=== PATIENT | male | born 1970 | race Caucasian/White ===

== ENCOUNTER 2020-06-03 23:08 | Emergency (ER) | payer MEDICAID ==
[2020-06-03 23:22] VITALS: BP 137/79
[2020-06-03] MEDS ORDERED: CLINDAMYCIN 600 MG/D5W RTU 600 MG/50 ML RTUPB IV ONE (23:32)
--- NOTE | 2020-06-03 23:34 | ER Document Report ---
ED Medical Screen (RME) - General Chief Complaint: Insect Bite Stated Complaint: POSS SPIDER BITE Time Seen by Provider: 06/03/20 23:31 Primary Care Provider: AUSTIN BARRERA MD [Primary Care Provider] - Follow up as needed Notes: HPI: 49-year-old male otherwise healthy up-to-date on tetanus vaccination presenting for possible insect bite to the base of the index finger that he thinks occurred in the last 1 to 2 days. Now with swelling over the entire left hand and difficulty bending the left finger. No fever PHYSICAL EXAMINATION: Significant soft tissue swelling over the dorsum of the left hand with erythema and increased warmth extending just past the extensor surface of the wrist. There is an apparent bite site or abscess to the radial side of the proximal phalange of the left index finger with induration extending around the proximal phalange onto the volar pad of the hand with some tenderness on palpation. Patient with some difficulty flexing and extending the finger at the MCP region I have greeted and performed a rapid initial assessment of this patient. A comprehensive ED assessment and evaluation of the patient, analysis of test results and completion of medical decision making process will be conducted by an additional ED providers. TRAVEL OUTSIDE OF THE [place] IN LAST 30 DAYS: No Past Medical History - Immunizations Immunizations up to date: No Physical Exam - Vital signs Vitals: Temp Pulse Resp BP Pulse Ox 98.0 F 67 18 137/79 H 99 06/03/20 23:20 06/03/20 23:20 06/03/20 23:20 06/03/20 23:20 06/03/20 23:20 Course - Vital Signs Vital signs: Temp Pulse Resp BP Pulse Ox 98.0 F 67 18 137/79 H 99 06/03/20 23:20 06/03/20 23:20 06/03/20 23:20 06/03/20 23:20 06/03/20 23:20 Doctor's Discharge - Discharge Referrals: AUSTIN BARRERA MD [Primary Care Provider] - Follow up as needed
[2020-06-04 00:23] LABS: ABSOLUTE BASOPHILS # (AUTO) 0.1 10^3/uL (0.0-0.2); ABSOLUTE EOSINOPHILS # (AUTO) 0.5 10^3/uL (0.0-0.6); ABSOLUTE LYMPHOCYTES (AUTO) 1.8 10^3/uL (0.5-4.7); ABSOLUTE MONOCYTES (AUTO) 0.8 10^3/uL (0.1-1.4); BASOPHILS % (AUTO) 0.9 % (0-2); EOSINOPHILS % (AUTO) 3.8 % (0-6); HEMATOCRIT 32.3 % (37.9-51.0); LYMPHOCYTES % (AUTO) 13.7 % (13-45); MEAN CORPUSCULAR HEMOGLOBIN 32.9 pg (27.0-33.4); MEAN CORPUSCULAR HGB CONC 34.1 g/dL (32.0-36.0); MEAN CORPUSCULAR VOLUME 96 fl (80-97); PLATELET COUNT 291 10^3/uL (150-450); RED BLOOD COUNT 3.36 10^6/uL (4.35-5.55); RED CELL DISTRIBUTION WIDTH 13.1 % (11.5-14.0); SEGMENTED NEUTROPHILS % (AUTO) 75.6 % (42-78); TOTAL CELLS COUNTED % (AUTO) 100 %; WHITE BLOOD COUNT 13.2 10^3/uL (4.0-10.5)
[2020-06-04 00:46] LABS: ALBUMIN 3.5 g/dL (3.5-5.0); ALKALINE PHOSPHATASE 79 U/L (38-126); ANION GAP 7 (5-19); ASPARTATE AMINO TRANSFERASE 19 U/L (17-59); BILIRUBIN,DIRECT 0.1 mg/dL (0.0-0.4); BILIRUBIN,TOTAL 0.3 mg/dL (0.2-1.3); BLOOD UREA NITROGEN 15 mg/dL (7-20); CALCIUM 9.1 mg/dL (8.4-10.2); CARBON DIOXIDE 29 mmol/L (22-30); CHLORIDE 103 mmol/L (98-107); GLUCOSE 104 mg/dL (75-110); TOTAL PROTEIN 5.9 g/dL (6.3-8.2)
--- NOTE | 2020-06-04 02:16 | ER Document Report ---
ED General - General Chief Complaint: Insect Bite Stated Complaint: POSS SPIDER BITE Time Seen by Provider: 06/03/20 23:31 Primary Care Provider: AUSTIN BARRERA MD [ACTIVE STAFF] - Follow up in 3-5 days TRAVEL OUTSIDE OF THE [place] IN LAST 30 DAYS: No - HPI Notes: 49-year-old male to the emergency department with complaints of left hand pain and swelling that began yesterday. He states he was working at work and maneuvering some chicken wire when he felt a "sticking bite. He states since then his hand has become more swollen and painful. He states that thinks Acevedo got bit by spider. He states he is up-to-date on his tetanus. He is right-hand dominant. He denies any fevers or chills. - Related Data Allergies/Adverse Reactions: Penicillins Allergy (Verified 06/03/20 23:36) Past Medical History - General Information source: Patient - Social History Smoking Status: Current Every Day Smoker Frequency of alcohol use: None Drug Abuse: Marijuana Family History: Reviewed & Not Pertinent - Immunizations Immunizations up to date: No Review of Systems - Review of Systems Constitutional: denies: Chills, Fever EENT: No symptoms reported Cardiovascular: denies: Chest pain, Palpitations, Heart racing, Syncope, Dizziness, Lightheaded Respiratory: denies: Cough, Short of breath Gastrointestinal: denies: Abdominal pain, Diarrhea, Nausea, Vomiting Genitourinary: No symptoms reported Musculoskeletal: Joint pain, Joint swelling - See HPI Skin: Change in color - See HPI Hematologic/Lymphatic: No symptoms reported Neurological/Psychological: No symptoms reported, Sensory change Physical Exam - Vital signs Vitals: Temp Pulse Resp BP Pulse Ox 98.0 F 67 18 137/79 H 99 06/03/20 23:20 06/03/20 23:20 06/03/20 23:20 06/03/20 23:20 06/03/20 23:20 Interpretation: Normal - General General appearance: Appears well, Alert In distress: Mild Notes: Mild pain distress - HEENT Head: Normocephalic, Atraumatic Eyes: Normal Pupils: PERRL Neck: Normal, Supple - Respiratory Respiratory status: No respiratory distress Chest status: Nontender Breath sounds: Normal. No: Rales, Rhonchi, Wheezing Chest palpation: Normal - Cardiovascular Rhythm: Regular Heart sounds: Normal auscultation Murmur: No - Abdominal Inspection: Normal Distension: No distension Bowel sounds: Normal Tenderness: Nontender. No: Tender, McBurney's point, Davalos's sign, Guarding, Rebound Organomegaly: No organomegaly - Extremities Hand: Tender - To the left hand on the dorsum aspect there is erythema and warmth as well as edema. Most of the erythema and warmth is over lying the metacarpal portion of the hand. There is to the dorsum of the left index finger a small pustule. However there is no fluctuance or martin abscess around this pustule. The patient does not have a flexor tenosynovitis as he does not have tenderness along the flexor sheath. He is not stuck in flexion. He does not have completely circumferential edema or erythema to the finger either. Radial pulses are intact and equal. Cap refill is less than 2 seconds. 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 There is no streaking lymphangitis up the left forearm or upper arm. There is no tenderness to palpation to the forearm, elbow or shoulder of the left upper extremity, Swelling - Neurological Neuro grossly intact: Yes Cognition: Normal Orientation: AAOx4 [place] Coma Scale Eye Opening: Spontaneous [place] Coma Scale Verbal: Oriented [place] Coma Scale Motor: Obeys Commands [place] Coma Scale Total: 15 Speech: Normal Cranial nerves: Normal Cerebellar coordination: Normal Motor strength normal: LUE, RUE, LLE, RLE Sensory: Normal - Psychological Associated symptoms: Normal affect, Normal mood - Skin Skin Temperature: Hot Skin Color: Erythema - See musculoskeletal for discussion of left hand erythema, edema, tenderness. Course - Re-evaluation Re-evalutation: 06/04/20 Discussed the patient with my attending, Dr. Jama. He went and saw the patient. We both agreed that there does not seem to be a martin abscess to drain. However we will unroofed the pustule that is on the side of the left index finger. Took a 22-gauge needle and unroofed the pustule. Small amount of pus came out. Mainly blood thereafter. Noted x-ray reading for possible foreign body. Explored the wound and no foreign body was visualized. Discussed plan with patient. We will hal his hand and he will come back tomorrow evening for a wound check. He will be placed on Bactrim and Keflex. He will also go home with little bit of pain medicine. He is to return sooner if the redness goes beyond the marked gaining applied to his hand. Patient agrees with the plan. Impression: Left hand cellulitis. Noted labs as well as x-ray findings. No martin abscess to drain. Have given him a dose of Clinda here. Sent home with Bactrim and Keflex. He is to return Friday evening for wound recheck. - Vital Signs Vital signs: Temp Pulse Resp BP Pulse Ox 98.0 F 67 18 137/79 H 99 06/03/20 23:20 06/03/20 23:20 06/03/20 23:20 06/03/20 23:20 06/03/20 23:20 - Laboratory Result Diagrams: 06/04/20 00:05 06/04/20 00:05 Laboratory results interpreted by me: 06/04/20 06/04/20 00:05 00:05 WBC 13.2 H RBC 3.36 L Hgb 11.0 L Hct 32.3 L Absolute Neuts (auto) 10.0 H Total Protein 5.9 L - Diagnostic Test Radiology reviewed: Image reviewed, Reports reviewed Discharge - Discharge Clinical Impression: Cellulitis of left hand Condition: Stable Disposition: HOME, SELF-CARE Instructions: Cellulitis ([facility]) Additional Instructions: Continue antibiotics felt this morning and start to take them. Return tonight and have a wound check with RIDDHI Mae. Apply warm compresses. Monitor for any fevers or erythema that is getting worse to the hand. Return sooner if redness starts to streak up into the forearm. Prescriptions: Ibuprofen [Motrin 600 mg Tablet] 600 mg PO Q8HP PRN #24 tablet PRN Reason: Sulfamethoxazole/Trimethoprim [Bactrim Ds Tablet] 1 each PO BID #20 tablet Cephalexin Monohydrate [Keflex 500 mg Capsule] 500 mg PO QID 10 Days #40 capsule Oxycodone HCl/Acetaminophen [Percocet 5-325 mg Tablet] 1 - 2 tab PO Q6H PRN #15 tablet PRN Reason: Referrals: AUSTIN BARRERA MD [ACTIVE STAFF] - Follow up in 3-5 days
[2020-06-04] MEDS ORDERED: MORPHINE SULFATE 10 MG/ML INJ IV ONE (02:28)
[2020-06-04] MEDS ORDERED: NORMAL SALINE 1000 ML 1,000 ML IV ONE (02:28)
[2020-06-04] MEDS ORDERED: CLINDAMYCIN 600 MG/D5W RTU 600 MG/50 ML RTUPB IV ONE (03:00)
--- NOTE | 2020-06-04 03:20 | RADIOLOGY REPORT (SQ) ---
Left hand x-ray three views on 06/04/2020 at 2:33 AM CLINICAL INDICATION: Left hand swelling COMPARISON: None FINDINGS: Soft tissue swelling is noted in the hand especially dorsally. There is a tiny density in the soft tissues between the first and second metacarpal most to the dorsal aspect of the second metacarpal that may represent a tiny foreign body. There are no fractures. Visualized joints are well aligned. No definite plain radiographic evidence of osteomyelitis is noted. IMPRESSION: Tiny radiopaque density in the hand soft tissues adjacent to the second metacarpal that may represent a tiny foreign body with soft tissue swelling of the hand.
[2020-06-04] MEDS ORDERED: HYDROMORPHONE HCL INJ/PF 2 MG/ML AMPULE IV ONE (04:06)
== END 2020-06-04 04:43 | disposition home or self-care (01) ==
LOC: ER 23:08
DX: L03.114 Cellulitis of left upper limb (principal); M79.642 Pain in left hand; F17.200 Nicotine dependence, unspecified, uncomplicated
CPT/HCPCS: 99284; 96375; 96365; 36415; 87040; 85025; 80053; 73130; S0077; J2270; J1170; J7030

== ENCOUNTER 2020-06-04 21:13 | Inpatient (IN) | payer SELFPAY ==
[2020-06-04] MEDS ORDERED: VANCOMYCIN HCL INJ 1000 MG VIAL IV ONE (22:36)
[2020-06-04] MEDS ORDERED: HYDROMORPHONE HCL INJ/PF 2 MG/ML AMPULE IV ONE (22:40)
--- NOTE | 2020-06-04 22:41 | ER Document Report ---
ED General - General Chief Complaint: Hand Swelling Stated Complaint: FOLLOW UP INJURY TO LEFT HAD Time Seen by Provider: 06/04/20 22:27 TRAVEL OUTSIDE OF THE [place] IN LAST 30 DAYS: No - HPI Notes: 49-year-old male to the emergency department for recheck of a left hand cellulitis. He was seen in the department last night. He was given clindamycin and then sent home with Bactrim and Keflex. He had an extensive cellulitis to the dorsum of his left hand that extended to the wrist. He had a small pustule on the side of his left index finger which was unroofed. There is not a martin abscess. He was instructed to return tonight for a wound check. He states that it continues to really throb. He denies any fevers or chills. Unfortunately, the redness is now extending to the dorsum of his forearm. - Related Data Allergies/Adverse Reactions: Penicillins Allergy (Verified 06/03/20 23:36) Past Medical History - General Information source: Patient - Social History Smoking Status: Current Every Day Smoker Frequency of alcohol use: None Drug Abuse: None Family History: Reviewed & Not Pertinent - Immunizations Immunizations up to date: No Review of Systems - Review of Systems Constitutional: denies: Chills, Fever EENT: No symptoms reported Cardiovascular: denies: Chest pain, Palpitations, Heart racing, Orthopnea, Dyspnea, Syncope, Dizziness, Lightheaded Respiratory: denies: Cough, Short of breath Gastrointestinal: denies: Abdominal pain, Diarrhea, Nausea, Vomiting Musculoskeletal: Joint pain - See HPI, Joint swelling Skin: Change in color - See HPI Neurological/Psychological: No symptoms reported -: Yes All other systems reviewed and negative Physical Exam - Vital signs Vitals: Temp Pulse Resp BP Pulse Ox 98.0 F 79 18 142/62 H 100 06/04/20 21:42 06/04/20 21:42 06/04/20 21:42 06/04/20 21:42 06/04/20 21:42 Interpretation: Normal - General General appearance: Appears well, Alert In distress: None - HEENT Head: Normocephalic, Atraumatic Eyes: Normal Pupils: PERRL - Respiratory Respiratory status: No respiratory distress Chest status: Nontender. No: Accessory muscle use Breath sounds: Normal. No: Rales, Rhonchi, Wheezing Chest palpation: Normal - Cardiovascular Rhythm: Regular Heart sounds: Normal auscultation Murmur: No - Extremities Hand: Tender - To the dorsum of the left hand there is erythema and edema. The erythema now has extended up dorsum of the left forearm approximately 6 cm. To the back of the left index finger there is now some maceration of the skin and a new small pustule. Again there is no martin abscess and no fluctuance there. The palm of the hand appears a little bit more edematous today as well. Handg rip is still 4 out of 5 due to the tenseness of the hand. 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 Course - Re-evaluation Re-evalutation: 06/04/20 22:58 Discussed the patient with Dr. Pimentel my ER attending. We agree that the progression of the cellulitis is concerning. We will give him a gram of vancomycin. Will obtain a CT of the hand to evaluate further for possible gas or more significant infection than just plain cellulitis. Advised patient of the plan and he agrees. Noted CT reading and worsening leukocytosis. In the setting of progressive cellulitis in the hand, do think that the patient requires admission. Had conversation with the patient initially he was resistant and wanted to return tomorrow. However, had Dr. Pimentel go and see the patient and he was able to get the patient to agree to stay. Spoke with Dr. Lagunas, orthopedist, complex care nurse practitioner. I asked for him to consult on the patient. I will admit him to the hospitalist service. We went over the CT findings and the progressively worsening cellulitis since last night. He will see the patient in the morning. 12:[address] Philip, hospitalist. He plans to call me back to discuss the patient further. Discussed patient with Dr. Philip. He accepts the patient to his service. He is aware that Dr. Lagunas will consult on the patient. Aware that I have given the patient Vancomycin here in the ER. He will come see him. - Vital Signs Vital signs: Temp Pulse Resp BP Pulse Ox 98.0 F 79 18 142/62 H 100 06/04/20 21:42 06/04/20 21:42 06/04/20 21:42 06/04/20 21:42 06/04/20 21:42 - Laboratory Result Diagrams: 06/04/20 22:54 06/04/20 22:54 Laboratory results interpreted by me: 06/04/20 22:54 WBC 15.0 H RBC 3.27 L Hgb 11.0 L Hct 31.5 L MCH 33.8 H Lymph % (Auto) 7.0 L Absolute Neuts (auto) 12.4 H Seg Neutrophils % 83.2 H - Diagnostic Test Radiology reviewed: Image reviewed, Reports reviewed Discharge - Discharge Clinical Impression: Cellulitis of hand, left Condition: Stable Disposition: ADMITTED INPATIENT Admitting Provider: Dr. Philip Unit Admitted: Medical Floor
[2020-06-04 23:17] LABS: ABSOLUTE BASOPHILS # (AUTO) 0.1 10^3/uL (0.0-0.2); ABSOLUTE EOSINOPHILS # (AUTO) 0.4 10^3/uL (0.0-0.6); ABSOLUTE NEUT (AUTO) 12.4 10^3/uL (1.7-8.2); BASOPHILS % (AUTO) 0.6 % (0-2); EOSINOPHILS % (AUTO) 2.4 % (0-6); HEMATOCRIT 31.5 % (37.9-51.0); MEAN CORPUSCULAR HEMOGLOBIN 33.8 pg (27.0-33.4); MEAN CORPUSCULAR HGB CONC 35.1 g/dL (32.0-36.0); MEAN CORPUSCULAR VOLUME 96 fl (80-97); MONOCYTES % (AUTO) 6.8 % (3-13); PLATELET COUNT 290 10^3/uL (150-450); RED BLOOD COUNT 3.27 10^6/uL (4.35-5.55); RED CELL DISTRIBUTION WIDTH 13.7 % (11.5-14.0); SEGMENTED NEUTROPHILS % (AUTO) 83.2 % (42-78); TOTAL CELLS COUNTED % (AUTO) 100 %
[2020-06-04 23:36] LABS: ALBUMIN 3.9 g/dL (3.5-5.0); ALKALINE PHOSPHATASE 89 U/L (38-126); ANION GAP 10 (5-19); ASPARTATE AMINO TRANSFERASE 23 U/L (17-59); BILIRUBIN,DIRECT 0.1 mg/dL (0.0-0.4); BILIRUBIN,TOTAL 0.4 mg/dL (0.2-1.3); BLOOD UREA NITROGEN 13 mg/dL (7-20); CARBON DIOXIDE 26 mmol/L (22-30); CHLORIDE 102 mmol/L (98-107); GLUCOSE 105 mg/dL (75-110); POTASSIUM 3.9 mmol/L (3.6-5.0); TOTAL PROTEIN 6.7 g/dL (6.3-8.2)
--- NOTE | 2020-06-05 00:29 | RADIOLOGY REPORT (SQ) ---
EXAM: CT Left Upper Extremity With Intravenous Contrast EXAM DATE/TIME: 06/04/2020 11:23 PM CLINICAL HISTORY: The patient is 49 years old and is Male; left hand swelling worsening cellulitis TECHNIQUE: Axial computed tomography images of the left upper extremity with intravenous contrast. Images were obtained from the distal forearm through the hand. Sagittal and coronal reformatted images were created and reviewed. This CT exam was performed using one or more of the following dose reduction techniques: automated exposure control, adjustment of the mA and/or kV according to patient size, and/or use of iterative reconstruction technique. COMPARISON: Radiographs of the left hand from 06/04/2020 FINDINGS: BONES/JOINTS: Mild cystic changes noted in the 2nd and 3rd metacarpal heads. No acute fracture or dislocation. No osseous erosion or periosteal reaction identified. SOFT TISSUES: There is prominent subcutaneous edema about the dorsal aspect of the distal forearm, wrist, and hand. There is a tiny metallic appearing density within the subcutaneous tissues about the dorsal aspect of the hand, at the level of the 2nd metacarpal. This is compatible with a tiny foreign body and is located approximately 3 mm deep to the skin surface (series 4, image 61). Additional punctate density suspicious for a tiny foreign body noted at the volar aspect of the thumb, at the level of the distal phalanx. There is no abscess visualized. No soft tissue air. IMPRESSION: 1. Prominent subcutaneous edema about the dorsal aspect of the wrist and hand, suggesting cellulitis. No discrete abscess visualized. 2. Tiny metallic appearing foreign body in the subcutaneous tissues about the dorsal aspect of the hand. Additional punctate foreign body within the soft tissues at the distal thumb.
[2020-06-05] MEDS ORDERED: NICOTINE 21 MG/24 HR PATCH.TD24 TD ONE (00:44)
[2020-06-05] MEDS ORDERED: HYDROMORPHONE HCL INJ/PF 2 MG/ML AMPULE IV ONE (00:56)
[2020-06-05] MEDS ORDERED: ACETAMINOPHEN 325 MG TABLET PO PRN (02:39)
--- NOTE | 2020-06-05 02:57 | PDOC H&P ---
History of Present Illness Admission Date/PCP: 06/05/20 02:06 Patient complains of: Left hand swelling History of Present Illness: TREVIN MENDOZA III is a 49 year old male with no significant past medical history who presents with 3-day duration of left hand pain, swelling and redness. The pain is dull aching, 8-9/10 in intensity. He states that it started as a small scratch after he was clamped by a chicken fence wire and then it progressively got worse. He was evaluated at the ER 1 day back and he was discharged with oral antibiotic but the swelling and area of redness markedly worsened and he presented back this evening. He has not noticed any discharge from the swelling area. He denies any fever, chills, nausea, vomiting, cough, shortness of breath or any change in his bowel or urinary habits. Social History Smoking Status: Current Every Day Smoker Hx Recreational Drug Use: Yes Drugs: Heroin - Advance Directive Resuscitation Status: Full Code Family History Family History: Reviewed & Not Pertinent Parental Family History Reviewed: Yes Children Family History Reviewed: Yes Sibling(s) Family History Reviewed.: Yes Medication/Allergy Home Medications: Azithromycin [Zithromax 250 mg Tablet] 250 mg PO ASDIR PRN #6 tablet 01/22/15 Guaifenesin [Mucinex Sr 600 mg Tablet.sa] 600 mg PO Q12 PRN #14 tablet.sa 01/22/15 Cephalexin Monohydrate [Keflex 500 mg Capsule] 500 mg PO QID 10 Days #40 capsule 06/04/20 Ibuprofen [Motrin 600 mg Tablet] 600 mg PO Q8HP PRN #24 tablet 06/04/20 Oxycodone HCl/Acetaminophen [Percocet 5-325 mg Tablet] 1 - 2 tab PO Q6H PRN #15 tablet 06/04/20 Sulfamethoxazole/Trimethoprim [Bactrim Ds Tablet] 1 each PO BID #20 tablet Allergies/Adverse Reactions: Penicillins Allergy (Verified 06/03/20 23:36) Review of Systems Constitutional: PRESENT: as per HPI Eyes: ABSENT: visual disturbances Ears: ABSENT: hearing changes Nose, Mouth, and Throat: ABSENT: as per HPI, headache(s), mouth pain, sore throat, vertigo, other Cardiovascular: ABSENT: chest pain, dyspnea on exertion, edema, orthropnea, palpitations Respiratory: ABSENT: cough, hemoptysis Gastrointestinal: ABSENT: abdominal pain, constipation, diarrhea, hematemesis, hematochezia, nausea, vomiting Genitourinary: ABSENT: dysuria, hematuria Musculoskeletal: PRESENT: as per HPI Integumentary: PRESENT: as per HPI Neurological: ABSENT: abnormal gait, abnormal speech, confusion, dizziness, focal weakness, syncope Psychiatric: ABSENT: anxiety, depression, homidical ideation, suicidal ideation Endocrine: ABSENT: cold intolerance, heat intolerance, polydipsia, polyuria Hematologic/Lymphatic: ABSENT: easy bleeding, easy bruising Physical Exam Vital Signs: Temp Pulse Resp BP Pulse Ox 98.0 F 79 18 142/62 H 100 06/04/20 21:42 06/04/20 21:42 06/04/20 21:42 06/04/20 21:42 06/04/20 21:42 Intake & Output 06/03/20 06/04/20 06/05/20 06:59 06:59 06:59 Weight 79.379 kg Additional comments: GENERAL APPEARANCE: Alert and oriented x3, no acute distress HEENT: Normocephalic and atraumatic. No scleral icterus. Moist oral mucosa NECK: Supple. No lymphadenopathy or tenderness. No carotid bruit. No JVD CHEST: Symmetric. Nontender to palpation. LUNGS: Good air entry on auscultation bilaterally. Has faint scattered wheezes bilaterally HEART: Regular rate and rhythm with normal S1 and S2. No murmurs, gallops, or rubs. ABDOMEN: Flat, soft, active bowel sounds, no direct or rebound tenderness. No organomegaly detected. No CVA tenderness EXTREMITIES: There is gross swelling involving the dorsum and plantar side of his left hand extending to his elbows. There is a pustular blister at the base of his index finger. Has tenderness and differential warmth but no subcutaneous crepitation. Radial pulses full and palpable on the left arm, sensation is intact MUSCULOSKELETAL: No deformity or atrophy noted PSYCHIATRIC: Recent and remote memory is intact. Appropriate mood and affect. SKIN: Warm, dry, and well perfused. NEUROLOGIC: No focal sensory or motor deficits are noted. Results Laboratory Results: 06/04/20 22:54 06/04/20 22:54 06/04/20 06/04/20 22:54 22:54 WBC 15.0 H RBC 3.27 L Hgb 11.0 L Hct 31.5 L MCV 96 MCH 33.8 H MCHC 35.1 RDW 13.7 Plt Count 290 Seg Neutrophils % 83.2 H Sodium 137.9 Potassium 3.9 Chloride 102 Carbon Dioxide 26 Anion Gap 10 BUN 13 Creatinine 0.74 Est GFR ( Amer) > 60 Glucose 105 Calcium 9.0 Total Bilirubin 0.4 AST 23 Alkaline Phosphatase 89 Total Protein 6.7 Albumin 3.9 Impressions: Upper Extremity CT 06/04/20 22:37 IMPRESSION: 1. Prominent subcutaneous edema about the dorsal aspect of the wrist and hand, suggesting cellulitis. No discrete abscess visualized. 2. Tiny metallic appearing foreign body in the subcutaneous tissues about the dorsal aspect of the hand. Additional punctate foreign body within the soft tissues at the distal thumb. Assessment and Plan - Diagnosis (1) Cellulitis of left hand Is this a current diagnosis for this admission?: Yes Plan: Patient presents with 3 days duration of left arm swelling, pain and erythema Has leukocytosis of 15k with left shift Failed outpatient treatment No sign of neurovascular compromise at this point X-ray showed no gas in subcutaneous tissue Started on vancomycin Dilaudid as needed for pain Tylenol as needed for fever Follow-up with blood culture from previous ER visit (06/05/20) Orthopedics consult in the morning due to hand involvement (2) Tobacco dependence Is this a current diagnosis for this admission?: Yes Plan: Encouraged tobacco cessation Nicotine patch while inpatient (3) Heroin abuse Is this a current diagnosis for this admission?: Yes Plan: Patient reports that occasional heroin use States that he does not use IV injection but rather he snorts Encouraged him to quit illicit drug use - Time Time Spent with patient: 35 or more minutes Total Critical Time (Minutes): 35 Smoking Cessation Education: 3 to 10 minutes Medications reviewed and adjusted accordingly: Yes Anticipated Discharge Disposition: Home, Self Care Anticipated Discharge Timeframe: within 48 hours - Inpatient Certification Medical Necessity: Failure to Improve With Outpatient Therapy, Need for Pain Control, Need for IV Antibiotics Post Hospital Care: D/C or Transfer Summary
[2020-06-05] MEDS ORDERED: VANCOMYCIN HCL 0 MG in DEXTROSE 5%-WATER 250 ML IV NR (03:00)
[2020-06-05] MEDS ORDERED: VANCOMYCIN HCL INJ 1000 MG VIAL IV PRN (03:14)
[2020-06-05] MEDS ORDERED: VANCOMYCIN HCL 1,000 MG in DEXTROSE 5%-WATER 250 ML IV ONE (03:15)
[2020-06-05 05:11] LABS: HEMATOCRIT 31.2 % (37.9-51.0); HEMOGLOBIN 10.9 g/dL (13.5-17.0); MEAN CORPUSCULAR HEMOGLOBIN 32.8 pg (27.0-33.4); MEAN CORPUSCULAR HGB CONC 34.8 g/dL (32.0-36.0); MEAN CORPUSCULAR VOLUME 94 fl (80-97); PLATELET COUNT 268 10^3/uL (150-450); RED BLOOD COUNT 3.32 10^6/uL (4.35-5.55); RED CELL DISTRIBUTION WIDTH 13.1 % (11.5-14.0); WHITE BLOOD COUNT 15.7 10^3/uL (4.0-10.5)
[2020-06-05 05:44] LABS: ABSOLUTE LYMPHOCYTES# (MANUAL) 0.9 10^3/uL (0.5-4.7); ABSOLUTE MONOCYTES # (MANUAL) 1.1 10^3/uL (0.1-1.4); BASOPHILS % (MANUAL) 1 % (0-2); EOSINOPHILS % (MANUAL) 1 % (0-6); LYMPHOCYTES % (MANUAL) 6 % (13-45); MONOCYTES % (MANUAL) 7 % (3-13); SEGMENTED NEUTROPHILS % (MAN) 85 % (42-78); TOTAL CELLS COUNTED 100
[2020-06-05 05:45] LABS: PLATELET COMMENT ADEQUATE; POIKILOCYTOSIS SLIGHT; TEAR DROP CELLS SLIGHT; TOXIC GRANULATION 1+; TOXIC VACUOLATION PRESENT
[2020-06-05] MEDS: OXYCODONE-ACETAMINOPHEN 5-325 MG TABLET PO PRN ×3 (09:22→23:27)
[2020-06-05] MEDS: FAMOTIDINE 20 MG TABLET PO SCH ×2 (09:22→21:17)
[2020-06-05] MEDS: NICOTINE 14 MG/24 HR PATCH.TD24 TD SCH (09:23)
[2020-06-05] MEDS: ENOXAPARIN SODIUM INJ 40 MG/0.4 ML DISP.SYRIN SUBCUT SCH (09:23)
--- NOTE | 2020-06-05 10:12 | PDOC CONSULTATION ---
Consultation Consult Date: 06/05/20 Provider Consulted: JAM SANTORO JR History of Present Illness Admission Date/PCP: 06/05/20 02:06 Patient complains of: Left hand pain History of Present Illness: TREVIN MENDOZA III is a 49 year old male who presents with progressive left hand erythema swelling and pain. Pain originated at about the left second MCP joint that has progressed and become purulent overnight. He initially presented to the emergency department 2 nights ago where he was given some antibiotics and returned home however he presented again due to failure of treatment and was admitted yesterday. Pain is dull aching 8 out of 10. 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 Pain is worsened with activity improved with rest. Social History Smoking Status: Current Every Day Smoker Hx Recreational Drug Use: Yes Drugs: Heroin - Advance Directive Resuscitation Status: Full Code Family History Family History: Reviewed & Not Pertinent Parental Family History Reviewed: No Children Family History Reviewed: NA Sibling(s) Family History Reviewed.: NA Medication/Allergy Home Medications: No Home Medications 06/05/20 Allergies/Adverse Reactions: Penicillins Allergy (Unknown, Verified 06/05/20 10:05) Review of Systems Review of Systems: Constitutional: ABSENT: anorexia, chills, night sweats Cardiovascular: ABSENT: chest pain Respiratory: ABSENT: dyspnea Gastrointestinal: ABSENT: vomiting Genitourinary: ABSENT: dysuria Integumentary: ABSENT: rash Neurological: ABSENT: confusion, memory loss, numbness Psychiatric: ABSENT: hallucinations Hematologic/Lymphatic: ABSENT: easy bleeding Physical Exam Vital Signs: Temp Pulse Resp BP Pulse Ox 97.8 F 72 17 150/83 H 100 06/05/20 08:42 06/05/20 08:42 06/05/20 08:42 06/05/20 08:42 06/05/20 08:42 Intake & Output 06/04/20 06/05/20 06/06/20 06:59 06:59 06:59 Intake Total 490 Balance 490 Weight 79.379 kg Physical Exam: General appearance: PRESENT: no acute distress, cooperative, well-nourished Head exam: PRESENT: atraumatic, normocephalic Eye exam: PRESENT: EOMI Ear exam: PRESENT: normal external ear exam Mouth exam: PRESENT: neck supple Neck exam: ABSENT: tracheal deviation Respiratory exam: PRESENT: symmetrical, unlabored. ABSENT: accessory muscle use, wheezes Pulses: PRESENT: normal radial pulses, normal dorsalis pedis pulse Vascular exam: PRESENT: normal capillary refill GI/Abdominal exam: ABSENT: distended, firm Extremities exam: PRESENT: full ROM of bilateral shoulders, elbows wrists, knees, hips and ankles without pain Musculoskeletal exam: PRESENT: full ROM, normal inspection of all 4 extremities aside from that noted below. Neurological exam: PRESENT: alert, awake, oriented to person, oriented to place, oriented to time Psychiatric exam: PRESENT: appropriate affect. ABSENT: agitated Focused psych exam: ABSENT: catatonic Skin exam: PRESENT: intact. ABSENT: dry All as above aside from that noted in the HPI and the following: Left upper extremity sensation grossly intact to radial median and ulnar nerve. upper extremity motor function grossly intact to radian median ulnar nerve AIN and PIN Pulses 2+, capillary refill less than 2 seconds Compartments soft, Small area of purulence over the dorsal aspect of the second MCP. There is erythema tracking just proximal to the wrist with associated swelling. Swelling is most pronounced at the MCP joint however there is no fluctuance or palpable deep abscess. Results Laboratory Results: 06/05/20 04:46 06/04/20 22:54 06/04/20 06/04/20 06/05/20 22:54 22:54 04:46 WBC 15.0 H 15.7 H RBC 3.27 L 3.32 L Hgb 11.0 L 10.9 L Hct 31.5 L 31.2 L MCV 96 94 MCH 33.8 H 32.8 MCHC 35.1 34.8 RDW 13.7 13.1 Plt Count 290 268 Seg Neutrophils % 83.2 H Not Reportable Sodium 137.9 Potassium 3.9 Chloride 102 Carbon Dioxide 26 Anion Gap 10 BUN 13 Creatinine 0.74 Est GFR ( Amer) > 60 Glucose 105 Calcium 9.0 Total Bilirubin 0.4 AST 23 Alkaline Phosphatase 89 Total Protein 6.7 Albumin 3.9 Impressions: Upper Extremity CT 06/04/20 22:37 IMPRESSION: 1. Prominent subcutaneous edema about the dorsal aspect of the wrist and hand, suggesting cellulitis. No discrete abscess visualized. 2. Tiny metallic appearing foreign body in the subcutaneous tissues about the dorsal aspect of the hand. Additional punctate foreign body within the soft tissues at the distal thumb. Assessment & Plan - Diagnosis (1) Cellulitis of left hand Is this a current diagnosis for this admission?: Yes Plan: Would like to evaluate for potential abscess with MR left hand If there is an obvious drainable collection will proceed with OR tomorrow. N.p.o. at midnight tonight Continue current antibiotic treatment Encourage multimodal pain management Physical therapy or occupational therapy to encourage range of motion of the hand.
[2020-06-05] MEDS: VANCOMYCIN HCL 1,250 MG in DEXTROSE 5%-WATER 250 ML IV SCH ×2 (11:21→17:30)
--- NOTE | 2020-06-05 13:28 | RADIOLOGY REPORT (SQ) ---
EXAM DESCRIPTION: U/S EXTREMITY NONVASCULAR LTD IMAGES COMPLETED DATE/TIME: 06/05/2020 11:00 am REASON FOR STUDY: evaluate for abscess COMPARISON: None. TECHNIQUE: Dynamic and static grayscale images acquired of the localized site of clinical concern an d recorded on PACS. Additional selected color Doppler and spectral images recorded. SITE OF CONCERN: Left elbow, hand, wrist and second digit. LIMITATIONS: None. FINDINGS: The left elbow, hand, wrist and second digit were scanned. Extensive soft tissue swelling and edema are visualized. No evidence of abscess collection. Increased vascularity is identified w ithin the soft tissues of the left second digit and left hand. These findings may be on the basis of inflammatory changes. IMPRESSION: 1. No abscess identified sonographically. See above findings. TECHNICAL DOCUMENTATION: JOB ID: [id number] 2010 [employer]- All Rights Reserved Reading location - IP/workstation name: [email or web address]
[2020-06-05] MEDS ORDERED: DEXTROSE 40% GEL 15 GM TUBE PO PRN ×2 (15:14)
[2020-06-05] MEDS ORDERED: GLUCAGON,HUMAN RECOMB 1 MG INJ SUBCUT PRN (15:14)
[2020-06-05] MEDS ORDERED: DEXTROSE 50%-WATER 25 GM/50 ML DISP.SYRIN IV PRN ×2 (15:14)
--- NOTE | 2020-06-05 15:16 | Progress Note ---
Provider Note Provider Note: Patient is a 49 year old male with a past medical history of recreational drug use (admits to cocaine and heroin) and tobacco dependence with continuous use who was admitted early this morning by the pulmonary function technologist for cellulitis of the left hand. Overnight events, vital signs, nursing notes, laboratory results, imaging, and H&P, and plan of care reviewed. Agree with plan of care as established by the previous provider. In addition: Expanded IV antibiotic to include Ancef. Patient admits to recreational drug use, and although he denies IVDU, is not a reliable historian. Started percocet 2 tabs 6hp pain. UDS to evaluate for cocain metabolites; Anesthesia services will likely recommend delayed procedure if patient remains positive. Recommend avoiding beta blockers, if required, for management of HTN. NPO after midnight; Dr. Lagunas plans for surgical I&D tomorrow.
[2020-06-05 17:29] LABS: URINE AMPHETAMINES SCREEN NEGATIVE; URINE BARBITURATES SCREEN NEGATIVE; URINE BENZODIAZEPINES SCREEN NEGATIVE; URINE COCAINE SCREEN NEGATIVE; URINE MARIJUANA (THC) SCREEN NEGATIVE; URINE METHADONE SCREEN NEGATIVE; URINE PHENCYCLIDINE SCREEN NEGATIVE
[2020-06-05] MEDS ORDERED: CEFAZOLIN 2 GM/D5W RTU 2 GM/50 ML RTUPB IV SCH (18:00)
[2020-06-05] MEDS: CEFAZOLIN SODIUM 2 GM in DEXTROSE 5%-WATER 100 ML IV SCH (19:55)
[2020-06-06] MEDS: CEFAZOLIN SODIUM 2 GM in DEXTROSE 5%-WATER 100 ML IV SCH ×3 (00:16→11:53)
[2020-06-06] MEDS: VANCOMYCIN HCL 1,250 MG in DEXTROSE 5%-WATER 250 ML IV SCH ×3 (01:27→18:06)
[2020-06-06] MEDS: OXYCODONE-ACETAMINOPHEN 5-325 MG TABLET PO PRN ×3 (05:46→18:06)
[2020-06-06 05:54] LABS: HEMATOCRIT 33.4 % (37.9-51.0); HEMOGLOBIN 11.5 g/dL (13.5-17.0); MEAN CORPUSCULAR HEMOGLOBIN 32.4 pg (27.0-33.4); MEAN CORPUSCULAR HGB CONC 34.4 g/dL (32.0-36.0); MEAN CORPUSCULAR VOLUME 94 fl (80-97); PLATELET COUNT 304 10^3/uL (150-450); RED BLOOD COUNT 3.55 10^6/uL (4.35-5.55); RED CELL DISTRIBUTION WIDTH 12.9 % (11.5-14.0); WHITE BLOOD COUNT 15.2 10^3/uL (4.0-10.5)
[2020-06-06 05:57] LABS: ANION GAP 8 (5-19)
[2020-06-06 06:05] LABS: BLOOD UREA NITROGEN 10 mg/dL (7-20); CARBON DIOXIDE 24 mmol/L (22-30); CHLORIDE 106 mmol/L (98-107); GLUCOSE 110 mg/dL (75-110); POTASSIUM 4.2 mmol/L (3.6-5.0)
[2020-06-06] MEDS ORDERED: LIDOCAINE 1% INJ-PF (10 MG/ML) 30 ML SDV ONE (07:35)
[2020-06-06] MEDS ORDERED: LIDOCAINE 1% INJ-PF (10 MG/ML) 30 ML SDV INJ PRN (07:39)
--- NOTE | 2020-06-06 08:52 | PDOC PROGRESS REPORT ---
Subjective Date:: 06/06/20 Subjective:: Patient reports some improvement in the proximal tracking of the inflammation ho wever his hand swelling is slightly worse. He reports difficulty with range of motion of his hand, has associated pain, no fevers overnight. Reason For Visit: LEFT HAND AND ARM CELLULITIS Physical Exam Vital Signs: Temp Pulse Resp BP Pulse Ox 98.0 F 62 16 121/73 99 06/06/20 07:53 06/06/20 03:16 06/06/20 03:16 06/06/20 03:16 06/06/20 03:16 Intake & Output 06/05/20 06/06/20 06/07/20 06:59 06:59 06:59 Intake Total 490 1403 Balance 490 1403 Weight 79.379 kg 79.5 kg Physical Exam: Left upper extremity There is purulent collection just under the skin of the second MCP joint. Additionally there is erythema tracking proximally however it is resolved from its most proximal aspect up to the elbow to be primarily just at the wrist mita int. Hand swelling is diffuse there is some mild associated erythema volarly at the second MCP joint. There does appear to be some slight resolution of swelling diffusely overnight. Neurovascular intact. General appearance: PRESENT: no acute distress Results Laboratory Results: 06/06/20 05:03 06/06/20 05:03 06/06/20 06/06/20 05:03 05:03 WBC 15.2 H RBC 3.55 L Hgb 11.5 L Hct 33.4 L MCV 94 MCH 32.4 MCHC 34.4 RDW 12.9 Plt Count 304 Sodium 138.3 Potassium 4.2 Chloride 106 Carbon Dioxide 24 Anion Gap 8 BUN 10 Creatinine 0.70 Est GFR ( Amer) > 60 Glucose 110 Calcium 9.0 Impressions: Upper Extremity CT 06/04/20 22:37 IMPRESSION: 1. Prominent subcutaneous edema about the dorsal aspect of the wrist and hand, suggesting cellulitis. No discrete abscess visualized. 2. Tiny metallic appearing foreign body in the subcutaneous tissues about the dorsal aspect of the hand. Additional punctate foreign body within the soft tissues at the distal thumb. Extremity Ultrasound 06/05/20 00:00 IMPRESSION: 1. No abscess identified sonographically. See above findings. Assessment & Plan - Diagnosis (1) Cellulitis of left hand Is this a current diagnosis for this admission?: Yes Plan: Ultrasound performed yesterday afternoon fails to show any identifiable drainable abscess. Bedside I&D performed today for superficial collection just under the skin of the second MCP joint If no resolution over the next day we will get an MRI to evaluate for possible second MCP septic arthritis or associated myositis or osteomyelitis We will monitor for improvement, continue antibiotics per hospitalist -Procedure: After discussing risks and benefits with the patient, including potential outcomes of each, the patient provided informed operative consent for a bedside I&D. The left upper extremity was prepped and draped in sterile sterile fashion with Betadine. The I&D was directed at the superficial collection just subcutaneous to the MCP joint. Block was provided with 1% lidocaine with epi about this collection. After adequate anesthesia a knife was utilized to open the collection followed by a culture swab of the obtained fluid. I probed the base of this fluid collection which did not have any communication deep to the dermis. The wound was then irrigated with sterile saline solution and a sterile dressing was then placed. Patient tolerated the procedure well. - Time Time Spent with patient: Less than 15 minutes
[2020-06-06] MEDS: NICOTINE 14 MG/24 HR PATCH.TD24 TD SCH (09:41)
[2020-06-06] MEDS: FAMOTIDINE 20 MG TABLET PO SCH ×2 (09:41→21:32)
[2020-06-06] MEDS: ENOXAPARIN SODIUM INJ 40 MG/0.4 ML DISP.SYRIN SUBCUT SCH (09:41)
--- NOTE | 2020-06-06 15:09 | PDOC PROGRESS REPORT ---
Subjective Date:: 06/06/20 Subjective:: As per admitting physician's note TREVIN MENDOZA III is a 49 year old male with no significant past medical history who presents with 3-day duration of left hand pain, swelling and redness. The pain is dull aching, 8-9/10 in intensity. He states that it started as a small scratch after he was clamped by a chicken fence wire and then it progressively got worse. He was evaluated at the ER 1 day back and he was discharged with oral antibiotic but the swelling and area of redness markedly worsened and he presented back this evening. He has not noticed any discharge from the swelling area. He denies any fever, chills, nausea, vomiting, cough, shortness of breath or any change in his bowel or urinary habits. 06/06/2020. Patient still complaining of left lower extremity swelling and pain, denies any fever or chills, he is status post bedside I&D by orthopedic surgery, plan is if no improvement by tomorrow we will obtain MRI of left upper extremity throughout possible CP septic arthritis or associated osteomyelitis or myositis. Reason For Visit: LEFT HAND AND ARM CELLULITIS Physical Exam Vital Signs: Temp Pulse Resp BP Pulse Ox 98.0 F 61 16 129/97 H 99 06/06/20 08:00 06/06/20 08:00 06/06/20 08:00 06/06/20 08:00 06/06/20 08:00 Intake & Output 06/05/20 06/06/20 06/07/20 06:59 06:59 06:59 Intake Total 490 1403 250 Balance 490 1403 250 Weight 79.379 kg 79.5 kg General appearance: PRESENT: no acute distress, well-developed, well-nourished Head exam: PRESENT: atraumatic, normocephalic Respiratory exam: PRESENT: clear to auscultation gloria. ABSENT: rales, rhonchi, wheezes Cardiovascular exam: PRESENT: RRR. ABSENT: diastolic murmur, rubs, systolic murmur GI/Abdominal exam: PRESENT: normal bowel sounds, soft. ABSENT: distended, guarding, mass, organolmegaly, rebound, tenderness Extremities exam: PRESENT: full ROM, other - Left hand swelling and tenderness, dressing in place, neurovascularly intact.. ABSENT: calf tenderness, clubbing, pedal edema Neurological exam: PRESENT: alert, awake, oriented to person, oriented to place, oriented to time, oriented to situation, CN II-XII grossly intact. ABSENT: motor sensory deficit Results Laboratory Results: 06/06/20 05:03 06/06/20 05:03 06/06/20 06/06/20 05:03 05:03 WBC 15.2 H RBC 3.55 L Hgb 11.5 L Hct 33.4 L MCV 94 MCH 32.4 MCHC 34.4 RDW 12.9 Plt Count 304 Sodium 138.3 Potassium 4.2 Chloride 106 Carbon Dioxide 24 Anion Gap 8 BUN 10 Creatinine 0.70 Est GFR ( Amer) > 60 Glucose 110 Calcium 9.0 Impressions: Upper Extremity CT 06/04/20 22:37 IMPRESSION: 1. Prominent subcutaneous edema about the dorsal aspect of the wrist and hand, suggesting cellulitis. No discrete abscess visualized. 2. Tiny metallic appearing foreign body in the subcutaneous tissues about the dorsal aspect of the hand. Additional punctate foreign body within the soft tissues at the distal thumb. Extremity Ultrasound 06/05/20 00:00 IMPRESSION: 1. No abscess identified sonographically. See above findings. Assessment and Plan - Diagnosis (1) Cellulitis of left hand Is this a current diagnosis for this admission?: Yes Plan: Patient presents with 3 days duration of left arm swelling, pain and erythema Has leukocytosis of 15k with left shift Failed outpatient treatment No sign of neurovascular compromise at this point X-ray showed no gas in subcutaneous tissue Started on vancomycin Dilaudid as needed for pain Tylenol as needed for fever Follow-up with blood culture from previous ER visit (06/05/20) Orthopedics consult in the morning due to hand involvement (2) Heroin abuse Is this a current diagnosis for this admission?: Yes Plan: Patient reports that occasional heroin use States that he does not use IV injection but rather he snorts Encouraged him to quit illicit drug use (3) Tobacco dependence Is this a current diagnosis for this admission?: Yes Plan: Encouraged tobacco cessation Nicotine patch while inpatient - Time Time Spent with patient: 25-34 minutes Medications reviewed and adjusted accordingly: Yes Anticipated Discharge Disposition: Home, Self Care Anticipated Discharge Timeframe: within 72 hours
[2020-06-06] MEDS: CEFTRIAXONE 1 GM/D5W RTU 1 GM/50 ML RTUPB IV SCH (17:14)
[2020-06-06 19:08] LABS: VANCOMYCIN,TROUGH 11.7 ug/mL (5.0-20.0)
[2020-06-07] MEDS: VANCOMYCIN HCL 1,500 MG in DEXTROSE 5%-WATER 250 ML IV SCH ×3 (01:13→18:02)
[2020-06-07] MEDS: OXYCODONE-ACETAMINOPHEN 5-325 MG TABLET PO PRN ×4 (01:14→21:00)
[2020-06-07 06:51] LABS: ABSOLUTE BASOPHILS # (AUTO) 0.1 10^3/uL (0.0-0.2); ABSOLUTE EOSINOPHILS # (AUTO) 0.4 10^3/uL (0.0-0.6); ABSOLUTE LYMPHOCYTES (AUTO) 1.1 10^3/uL (0.5-4.7); ABSOLUTE MONOCYTES (AUTO) 0.9 10^3/uL (0.1-1.4); ABSOLUTE NEUT (AUTO) 10.5 10^3/uL (1.7-8.2); BASOPHILS % (AUTO) 0.6 % (0-2); EOSINOPHILS % (AUTO) 2.9 % (0-6); HEMATOCRIT 35.3 % (37.9-51.0); LYMPHOCYTES % (AUTO) 8.6 % (13-45); MEAN CORPUSCULAR HEMOGLOBIN 32.3 pg (27.0-33.4); MEAN CORPUSCULAR VOLUME 95 fl (80-97); MONOCYTES % (AUTO) 6.8 % (3-13); PLATELET COUNT 330 10^3/uL (150-450); RED BLOOD COUNT 3.72 10^6/uL (4.35-5.55); RED CELL DISTRIBUTION WIDTH 13.2 % (11.5-14.0); SEGMENTED NEUTROPHILS % (AUTO) 81.1 % (42-78); TOTAL CELLS COUNTED % (AUTO) 100 %
[2020-06-07 07:14] LABS: ALKALINE PHOSPHATASE 113 U/L (38-126); ANION GAP 12 (5-19); ASPARTATE AMINO TRANSFERASE 21 U/L (17-59); BILIRUBIN,DIRECT 0.2 mg/dL (0.0-0.4); BILIRUBIN,TOTAL 0.5 mg/dL (0.2-1.3); BLOOD UREA NITROGEN 14 mg/dL (7-20); CALCIUM 9.3 mg/dL (8.4-10.2); CARBON DIOXIDE 25 mmol/L (22-30); CHLORIDE 102 mmol/L (98-107); GLUCOSE 109 mg/dL (75-110); POTASSIUM 4.7 mmol/L (3.6-5.0)
[2020-06-07 07:27] LABS: C-REACTIVE PROTEIN 156.5 mg/L (<10.0)
[2020-06-07] MEDS ORDERED: LIDOCAINE 1% INJ-PF (10 MG/ML) 30 ML SDV INJ PRN (07:42)
[2020-06-07 07:47] LABS: ERYTHROCYTE SEDIMENTATION RATE 81 mm/hr (0-15)
[2020-06-07] MEDS: FAMOTIDINE 20 MG TABLET PO SCH ×2 (10:02→21:48)
[2020-06-07] MEDS: ENOXAPARIN SODIUM INJ 40 MG/0.4 ML DISP.SYRIN SUBCUT SCH (10:02)
[2020-06-07] MEDS: NICOTINE 14 MG/24 HR PATCH.TD24 TD SCH (10:02)
--- NOTE | 2020-06-07 14:08 | PDOC PROGRESS REPORT ---
Subjective Date:: 06/07/20 Subjective:: As per admitting physician's note TREVIN MENDOZA III is a 49 year old male with no significant past medical history who presents with 3-day duration of left hand pain, swelling and redness. The pain is dull aching, 8-9/10 in intensity. He states that it started as a small scratch after he was clamped by a chicken fence wire and then it progressively got worse. He was evaluated at the ER 1 day back and he was discharged with oral antibiotic but the swelling and area of redness markedly worsened and he presented back this evening. He has not noticed any discharge from the swelling area. He denies any fever, chills, nausea, vomiting, cough, shortness of breath or any change in his bowel or urinary habits. 06/06/2020. Patient still complaining of left lower extremity swelling and pain, denies any fever or chills, he is status post bedside I&D by orthopedic surgery, plan is if no improvement by tomorrow we will obtain MRI of left upper extremity throughout possible CP septic arthritis or associated osteomyelitis or myositis. 06/07/2020. No acute events overnight. Patient reporting significant improvement of his left hand swelling and tenderness, patient had an I&D at bedside in the morning by orthopedic surgeon, patient denies any fever, chills, nausea, vomiting, diarrhea, constipation or any urinary symptoms. Reason For Visit: LEFT HAND AND ARM CELLULITIS Physical Exam Vital Signs: Temp Pulse Resp BP Pulse Ox 97.6 F 63 16 130/82 H 100 06/07/20 11:22 06/07/20 11:22 06/07/20 11:22 06/07/20 11:22 06/07/20 11:22 Intake & Output 06/06/20 06/07/20 06/08/20 06:59 06:59 06:59 Intake Total 1403 2132 971 Balance 1403 2132 971 Weight 79.5 kg 79.5 kg General appearance: PRESENT: no acute distress, well-developed, well-nourished Head exam: PRESENT: atraumatic, normocephalic Neck exam: ABSENT: carotid bruit, JVD, lymphadenopathy, thyromegaly Respiratory exam: PRESENT: clear to auscultation gloria. ABSENT: rales, rhonchi, wheezes Cardiovascular exam: PRESENT: RRR. ABSENT: diastolic murmur, rubs, systolic murmur GI/Abdominal exam: PRESENT: normal bowel sounds, soft. ABSENT: distended, guarding, mass, organolmegaly, rebound, tenderness Rectal exam: PRESENT: deferred Extremities exam: PRESENT: full ROM, other - Left hand dressing in place, exposed areas negative for any swelling or erythema, neurovascularly intact.. ABSENT: calf tenderness, clubbing, pedal edema Skin exam: PRESENT: dry, intact, warm. ABSENT: cyanosis, rash Results Laboratory Results: 06/07/20 06:22 06/07/20 06:22 06/07/20 06/07/20 06:22 06:22 WBC 13.0 H RBC 3.72 L Hgb 12.0 L Hct 35.3 L MCV 95 MCH 32.3 MCHC 34.0 RDW 13.2 Plt Count 330 Seg Neutrophils % 81.1 H Sodium 139.0 Potassium 4.7 Chloride 102 Carbon Dioxide 25 Anion Gap 12 BUN 14 Creatinine 0.79 Est GFR ( Amer) > 60 Glucose 109 Calcium 9.3 Total Bilirubin 0.5 AST 21 Alkaline Phosphatase 113 C-Reactive Protein 156.5 H Total Protein 7.0 Albumin 4.0 Impressions: Upper Extremity CT 06/04/20 22:37 IMPRESSION: 1. Prominent subcutaneous edema about the dorsal aspect of the wrist and hand, suggesting cellulitis. No discrete abscess visualized. 2. Tiny metallic appearing foreign body in the subcutaneous tissues about the dorsal aspect of the hand. Additional punctate foreign body within the soft tissues at the distal thumb. Extremity Ultrasound 06/05/20 00:00 IMPRESSION: 1. No abscess identified sonographically. See above findings. Assessment and Plan - Diagnosis (1) Cellulitis of left hand Is this a current diagnosis for this admission?: Yes Plan: Significant improvement. Leukocytosis improving. Status post I&D orthopedic surgery. Patient presented with with 3 days duration of left arm swelling, pain and erythema Has leukocytosis of 15k with left shift on admission. Failed outpatient treatment No sign of neurovascular compromise at this point X-ray showed no gas in subcutaneous tissue CT left hand prominent subcutaneous edema about the dorsal aspect of the wrist and hand, suggestive cellulitis. No discrete abscess visualized. Day 2 IV antibiotics. Day 3 IV vancomycin. Day 2 IV ceftriaxone. Received 1 day of IV cefazolin. Continue empiric IV antibiotics. Continue opioid and nonopioid analgesics. Continue wound care. Follow-up Ortho recommendation. Follow-up wound culture. (2) Heroin abuse Is this a current diagnosis for this admission?: Yes Plan: As per admitting physician patient reports that occasional heroin use States that he does not use IV injection but rather he snorts Encouraged him to quit illicit drug use (3) Tobacco dependence Is this a current diagnosis for this admission?: Yes Plan: Encouraged tobacco cessation Nicotine patch while inpatient - Time Time Spent with patient: 35 or more minutes Medications reviewed and adjusted accordingly: Yes Anticipated Discharge Disposition: Home, Self Care Anticipated Discharge Timeframe: within 72 hours
--- NOTE | 2020-06-07 15:14 | PDOC PROGRESS REPORT ---
Subjective Date:: 06/07/20 Subjective:: The patient examined at bedside this morning. He reports potential improvement overnight in regards to swelling in the hand, denies any interval fevers chills or night sweats Reason For Visit: LEFT HAND AND ARM CELLULITIS Physical Exam Vital Signs: Temp Pulse Resp BP Pulse Ox 97.6 F 63 16 130/82 H 100 06/07/20 11:22 06/07/20 11:22 06/07/20 11:22 06/07/20 11:22 06/07/20 11:22 Intake & Output 06/06/20 06/07/20 06/08/20 06:59 06:59 06:59 Intake Total 1403 2132 971 Balance 1403 2132 971 Weight 79.5 kg 79.5 kg Physical Exam: NAD, AOx3 Left upper extremity exam Neurovascular intact, capillary refill less than 2 seconds The prior unroofed skin over the second MCP J appears without considerable change Prior erythema that was marked with a skin marker has regressed and appears to be improving, as well as decreased swelling in the upper extremity There is an area of fluctuance just proximal to the MCP J that is with the potential palpable fluid wave and apparent subcutaneous purulence. Results Laboratory Results: 06/07/20 06:22 06/07/20 06:22 06/07/20 06/07/20 06:22 06:22 WBC 13.0 H RBC 3.72 L Hgb 12.0 L Hct 35.3 L MCV 95 MCH 32.3 MCHC 34.0 RDW 13.2 Plt Count 330 Seg Neutrophils % 81.1 H Sodium 139.0 Potassium 4.7 Chloride 102 Carbon Dioxide 25 Anion Gap 12 BUN 14 Creatinine 0.79 Est GFR ( Amer) > 60 Glucose 109 Calcium 9.3 Total Bilirubin 0.5 AST 21 Alkaline Phosphatase 113 C-Reactive Protein 156.5 H Total Protein 7.0 Albumin 4.0 Impressions: Upper Extremity CT 06/04/20 22:37 IMPRESSION: 1. Prominent subcutaneous edema about the dorsal aspect of the wrist and hand, suggesting cellulitis. No discrete abscess visualized. 2. Tiny metallic appearing foreign body in the subcutaneous tissues about the dorsal aspect of the hand. Additional punctate foreign body within the soft tissues at the distal thumb. Extremity Ultrasound 06/05/20 00:00 IMPRESSION: 1. No abscess identified sonographically. See above findings. Assessment & Plan - Diagnosis (1) Cellulitis of left hand Is this a current diagnosis for this admission?: Yes (2) Abscess of left hand Is this a current diagnosis for this admission?: Yes Plan: The cellulitis and soft tissue inflammation is ultimately developed into an abscess along the dorsum of his left hand just proximal to the MCP joint On exam today I was able to unroofed the small portion of the abscess which then began to express copious amounts of purulent fluid I returned this afternoon and performed a bedside I&D Procedure note: The patient was provided with local anesthetic and a sterile fashion. After adequate anesthesia with 1% lidocaine the left upper colon was prepped and draped in standard sterile fashion. 20 proceeded to open the small area but it previously erupted with 11 blade. After doing so was able to express substantial amount more purulence. I was hopeful at the time that this was open to be isolated to the dorsum of his hand however I was able to express more by palpating the volar aspect of his hand as well. This gives me concerned that the infection is more widespread in his hand then isolated on the dorsum of the radial side. I explored as much as possible with wound probes however the patient found this very uncomfortable. Cultures were taken. After copiously irrigating the area with dilute Betadine solution, a sterile dressing was then placed. -Given the findings above the patient will likely need a more thorough I&D in the operating room under controlled setting to allow for full exploration of the abscess and evacuation of any necrotic tissue. He will be placed on the schedule for tomorrow Keep him n.p.o. tonight Continue current antibiotics Follow-up cultures. - Time Time Spent with patient: Less than 15 minutes
[2020-06-07] MEDS: CEFTRIAXONE 1 GM/D5W RTU 1 GM/50 ML RTUPB IV SCH (18:03)
[2020-06-08] MEDS: VANCOMYCIN HCL 1,500 MG in DEXTROSE 5%-WATER 250 ML IV SCH ×3 (01:43→17:12)
[2020-06-08] MEDS: OXYCODONE-ACETAMINOPHEN 5-325 MG TABLET PO PRN ×3 (06:24→19:30)
[2020-06-08] MEDS ORDERED: FENTANYL CITRATE INJ/PF 100 MCG/2 ML AMPUL ONE (06:50)
[2020-06-08] MEDS ORDERED: PROPOFOL INJ 200 MG/20 ML VIAL IV ONE ×2 (06:50→07:48)
[2020-06-08] MEDS ORDERED: MIDAZOLAM 2 MG/2 ML INJ ONE (06:50)
[2020-06-08] MEDS ORDERED: ONDANSETRON HCL INJ/PF 4 MG/2 ML SDV ONE (06:50)
[2020-06-08] MEDS ORDERED: DEXAMETHASONE SOD PHOSPHATE INJ 4 MG/1 ML VIAL ONE (06:50)
[2020-06-08] MEDS ORDERED: LIDOCAINE 1%/EPINEPHRINE INJ 20 ML VIAL ONE (07:47)
[2020-06-08] MEDS ORDERED: BUPIVACAINE HCL 0.5 % INJ/PF 30 ML SDV ONE (07:47)
[2020-06-08 08:04] LABS: ABSOLUTE BASOPHILS # (AUTO) 0.1 10^3/uL (0.0-0.2); ABSOLUTE EOSINOPHILS # (AUTO) 0.6 10^3/uL (0.0-0.6); ABSOLUTE LYMPHOCYTES (AUTO) 1.2 10^3/uL (0.5-4.7); ABSOLUTE MONOCYTES (AUTO) 0.6 10^3/uL (0.1-1.4); ABSOLUTE NEUT (AUTO) 6.1 10^3/uL (1.7-8.2); BASOPHILS % (AUTO) 1.3 % (0-2); EOSINOPHILS % (AUTO) 6.4 % (0-6); HEMOGLOBIN 11.7 g/dL (13.5-17.0); LYMPHOCYTES % (AUTO) 14.3 % (13-45); MEAN CORPUSCULAR HEMOGLOBIN 32.4 pg (27.0-33.4); MEAN CORPUSCULAR HGB CONC 34.3 g/dL (32.0-36.0); MEAN CORPUSCULAR VOLUME 94 fl (80-97); MONOCYTES % (AUTO) 7.1 % (3-13); PLATELET COUNT 351 10^3/uL (150-450); RED CELL DISTRIBUTION WIDTH 13.4 % (11.5-14.0); SEGMENTED NEUTROPHILS % (AUTO) 70.9 % (42-78); TOTAL CELLS COUNTED % (AUTO) 100 %; WHITE BLOOD COUNT 8.6 10^3/uL (4.0-10.5)
[2020-06-08] MEDS ORDERED: MEPERIDINE HCL/PF INJ 25 MG/1 ML DISP.SYRIN IV PRN (08:17)
[2020-06-08] MEDS ORDERED: PROMETHAZINE HCL INJ 25 MG/1 ML VIAL IV PRN (08:17)
[2020-06-08] MEDS ORDERED: FENTANYL CITRATE INJ/PF 100 MCG/2 ML AMPUL IV PRN ×3 (08:17)
[2020-06-08] MEDS ORDERED: MORPHINE SULFATE 10 MG/ML INJ IV PRN (08:17)
[2020-06-08] MEDS ORDERED: DIPHENHYDRAMINE HCL 50 MG/ML VIAL IV PRN (08:17)
[2020-06-08 08:35] LABS: ANION GAP 11 (5-19); BLOOD UREA NITROGEN 14 mg/dL (7-20); CALCIUM 9.6 mg/dL (8.4-10.2); CARBON DIOXIDE 25 mmol/L (22-30); CHLORIDE 103 mmol/L (98-107); GLUCOSE 105 mg/dL (75-110); POTASSIUM 5.4 mmol/L (3.6-5.0)
--- NOTE | 2020-06-08 09:08 | Operative Report ---
Operative Report DATE OF SURGERY: 06/08/20 PREOPERATIVE DIAGNOSIS: Left hand abscess POSTOPERATIVE DIAGNOSIS: Left hand abscess OPERATION: Left hand incision and debridement. SURGEON: JAM SANTORO JR ANESTHESIA: LMAC TISSUE REMOVED OR ALTERED: Cultures taken COMPLICATIONS: None ESTIMATED BLOOD LOSS: 30 cc PROCEDURE: The patient was brought to the operating suite laid supine on the operating table. Patient was placed under LMAC anesthesia. They are on continuous antibiotics preoperatively. The right upper extremity was prepped and draped in sterile sterile fashion. After an appropriate timeout the incision was planned. The left upper extremity was then elevated and tourniquet was inflated to 250 mmHg. The dorsal hand abscess had a small open wound just proximal to the second MCP joint. This was extended both proximally and distally. A culture swab was introduced into the wound and the borders of the wound were explored. The abscess appeared to go up to the PIP joint of the second digit. I extended my incision distally to include further exposure of the second digit as well as proximally. Gross purulence was encountered and subsequent cultures were taken. I then proceeded to remove any necrotic or infected appearing tissue with gentle dissection with Ray-Kristie sponges as well as with a rongeur. After removing all nonviable appearing tissue the wound was copiously irrigated with dilute Betadine solution. Any potential bleeders were cauterized with Bovie. The second MCP joint was probed and did not appear to have any effusion or infection in the joint, therefore I did not violate the capsule of the joint. The wound was again irrigated followed by gentle approximation of the wound edges both proximally and distally allowing the center of the incision to remain partially open. A sterile dressing was then placed. The patient was then awakened from anesthesia and transferred the PACU in stable condition.
--- NOTE | 2020-06-08 09:12 | PDOC PROGRESS REPORT ---
Subjective Date:: 06/08/20 Subjective:: The patient does report continued improvement in the hand however given the exte nt of purulence encountered yesterday at the bedside I&D the decision was made to proceed with left hand formal incision and treatment in the operating room today. Patient denies any other overnight events. Reason For Visit: LEFT HAND AND ARM CELLULITIS Physical Exam Vital Signs: Temp Pulse Resp BP Pulse Ox 97.5 F 62 16 107/71 100 06/07/20 23:01 06/07/20 23:01 06/07/20 23:01 06/07/20 23:01 06/07/20 23:01 Intake & Output 06/07/20 06/08/20 06/09/20 06:59 06:59 06:59 Intake Total 2132 2733 700 Output Total 5 Balance 2132 2733 695 Weight 79.5 kg 79.5 kg Physical Exam: No acute distress, alert and orient x3 The left upper extremity has continued resolution of swelling and erythema however the dorsal hand abscess has surrounding tissue that is macerated with some continued purulent expression. There does appear to be some resolution of the volar hand swelling the patient still has neurovascular intact left upper extremity with ability to range his fingers. Full range of motion somewhat limited due to his pain and swelling at this time within expected tolerances. Results Laboratory Results: 06/08/20 07:50 06/08/20 07:50 06/08/20 06/08/20 07:50 07:50 WBC 8.6 RBC 3.60 L Hgb 11.7 L Hct 34.0 L MCV 94 MCH 32.4 MCHC 34.3 RDW 13.4 Plt Count 351 Seg Neutrophils % 70.9 Sodium 139.0 Potassium 5.4 H Chloride 103 Carbon Dioxide 25 Anion Gap 11 BUN 14 Creatinine 0.78 Est GFR ( Amer) > 60 Glucose 105 Calcium 9.6 Impressions: Upper Extremity CT 06/04/20 22:37 IMPRESSION: 1. Prominent subcutaneous edema about the dorsal aspect of the wrist and hand, suggesting cellulitis. No discrete abscess visualized. 2. Tiny metallic appearing foreign body in the subcutaneous tissues about the dorsal aspect of the hand. Additional punctate foreign body within the soft tissues at the distal thumb. Extremity Ultrasound 06/05/20 00:00 IMPRESSION: 1. No abscess identified sonographically. See above findings. Assessment & Plan - Diagnosis (1) Cellulitis of left hand Is this a current diagnosis for this admission?: Yes (2) Abscess of left hand Is this a current diagnosis for this admission?: Yes Plan: Continue to follow wound cultures Continue current antibiotics, I will defer antibiotic selection to the hospitalist team or potentially infectious disease Encourage range of motion of the left hand Dressing changes as needed Keep left upper extremity elevated - Time Time Spent with patient: Less than 15 minutes
[2020-06-08] MEDS ORDERED: KETOROLAC TROMETHAMINE INJ/PF 30 MG/1 ML SDV ONE (09:16)
[2020-06-08] MEDS: ENOXAPARIN SODIUM INJ 40 MG/0.4 ML DISP.SYRIN SUBCUT SCH (09:44)
[2020-06-08] MEDS: NICOTINE 14 MG/24 HR PATCH.TD24 TD SCH (09:48)
[2020-06-08] MEDS: FAMOTIDINE 20 MG TABLET PO SCH ×2 (09:48→21:43)
[2020-06-08] MEDS ORDERED: KETOROLAC TROMETHAMINE INJ/PF 30 MG/1 ML SDV IV ONE (10:30)
[2020-06-08 10:50] LABS: VANCOMYCIN,TROUGH 15.6 ug/mL (5.0-20.0)
--- NOTE | 2020-06-08 17:04 | PDOC PROGRESS REPORT ---
Subjective Date:: 06/08/20 Subjective:: As per admitting physician's note TREVIN MENDOZA III is a 49 year old male with no significant past medical history who presents with 3-day duration of left hand pain, swelling and redness. The pain is dull aching, 8-9/10 in intensity. He states that it started as a small scratch after he was clamped by a chicken fence wire and then it progressively got worse. He was evaluated at the ER 1 day back and he was discharged with oral antibiotic but the swelling and area of redness markedly worsened and he presented back this evening. He has not noticed any discharge from the swelling area. He denies any fever, chills, nausea, vomiting, cough, shortness of breath or any change in his bowel or urinary habits. 06/06/2020. Patient still complaining of left lower extremity swelling and pain, denies any fever or chills, he is status post bedside I&D by orthopedic surgery, plan is if no improvement by tomorrow we will obtain MRI of left upper extremity throughout possible CP septic arthritis or associated osteomyelitis or myositis. 06/07/2020. No acute events overnight. Patient reporting significant improvement of his left hand swelling and tenderness, patient had an I&D at bedside in the morning by orthopedic surgeon, patient denies any fever, chills, nausea, vomiting, diarrhea, constipation or any urinary symptoms. 06/08/2020. No acute events overnight. Patient is reporting improvement of his left hand swelling and pain, given continuous purulent discharge patient was taken to the OR today by orthopedic surgery please refer to operative note. Denies any fever, chills, nausea, vomiting, diarrhea, constipation or any urinary symptoms. P.o. tolerant, ambulatory, having normal bladder bowel movement. Reason For Visit: LEFT HAND AND ARM CELLULITIS Physical Exam Vital Signs: Temp Pulse Resp BP Pulse Ox 98.2 F 71 16 119/65 100 06/08/20 11:45 06/08/20 11:45 06/08/20 11:45 06/08/20 11:45 06/08/20 11:45 Intake & Output 06/07/20 06/08/20 06/09/20 06:59 06:59 06:59 Intake Total 2132 2733 1500 Output Total 5 Balance 2 2733 1495 Weight 79.5 kg 79.5 kg General appearance: PRESENT: no acute distress, well-developed, well-nourished Head exam: PRESENT: atraumatic, normocephalic Respiratory exam: PRESENT: clear to auscultation gloria. ABSENT: rales, rhonchi, wheezes Pulses: PRESENT: normal dorsalis pedis pul GI/Abdominal exam: PRESENT: normal bowel sounds, soft. ABSENT: distended, guard ing, mass, organolmegaly, rebound, tenderness Extremities exam: PRESENT: full ROM, other - Proximal right index finger is erythematous, wound looks clean, no sign of discharge neurovascularly intact.. ABSENT: calf tenderness, clubbing, pedal edema Neurological exam: PRESENT: alert, awake, oriented to person, oriented to place, oriented to time, oriented to situation, CN II-XII grossly intact. ABSENT: motor sensory deficit Results Laboratory Results: 06/08/20 07:50 06/08/20 07:50 06/08/20 06/08/20 07:50 07:50 WBC 8.6 RBC 3.60 L Hgb 11.7 L Hct 34.0 L MCV 94 MCH 32.4 MCHC 34.3 RDW 13.4 Plt Count 351 Seg Neutrophils % 70.9 Sodium 139.0 Potassium 5.4 H Chloride 103 Carbon Dioxide 25 Anion Gap 11 BUN 14 Creatinine 0.78 Est GFR ( Amer) > 60 Glucose 105 Calcium 9.6 Impressions: Upper Extremity CT 06/04/20 22:37 IMPRESSION: 1. Prominent subcutaneous edema about the dorsal aspect of the wrist and hand, suggesting cellulitis. No discrete abscess visualized. 2. Tiny metallic appearing foreign body in the subcutaneous tissues about the dorsal aspect of the hand. Additional punctate foreign body within the soft tissues at the distal thumb. Extremity Ultrasound 06/05/20 00:00 IMPRESSION: 1. No abscess identified sonographically. See above findings. Assessment and Plan - Diagnosis (1) Cellulitis of left hand Is this a current diagnosis for this admission?: Yes Plan: Significant improvement. Leukocytosis improving. Status post I&D orthopedic surgery. Patient presented with with 3 days duration of left arm swelling, pain and erythema Had leukocytosis of 15k with left shift on admission. Failed outpatient treatment No sign of neurovascular compromise at this point X-ray showed no gas in subcutaneous tissue CT left hand prominent subcutaneous edema about the dorsal aspect of the wrist and hand, suggestive cellulitis. No discrete abscess visualized. Wound culture growing gram-positive cocci in clusters. Pending sensitivity. Day 4 IV antibiotics. Day 4 IV vancomycin. Day 4 IV ceftriaxone. Received 1 day of IV cefazolin. Continue empiric IV antibiotics. Continue opioid and nonopioid analgesics. Continue wound care. Follow-up Ortho recommendation. Follow-up wound culture. (2) Heroin abuse Is this a current diagnosis for this admission?: Yes Plan: As per admitting physician patient reports that occasional heroin use States that he does not use IV injection but rather he snorts Encouraged him to quit illicit drug use (3) Tobacco dependence Is this a current diagnosis for this admission?: Yes Plan: Encouraged tobacco cessation Nicotine patch while inpatient - Time Time Spent with patient: 25-34 minutes Medications reviewed and adjusted accordingly: Yes Anticipated Discharge Disposition: Home, Self Care Anticipated Discharge Timeframe: within 72 hours
[2020-06-08] MEDS: CEFTRIAXONE 1 GM/D5W RTU 1 GM/50 ML RTUPB IV SCH (17:12)
[2020-06-09] MEDS: VANCOMYCIN HCL 1,500 MG in DEXTROSE 5%-WATER 250 ML IV SCH ×3 (01:04→17:46)
[2020-06-09] MEDS: OXYCODONE-ACETAMINOPHEN 5-325 MG TABLET PO PRN ×4 (02:53→23:50)
[2020-06-09 10:32] LABS: ABSOLUTE BASOPHILS # (AUTO) 0.1 10^3/uL (0.0-0.2); ABSOLUTE EOSINOPHILS # (AUTO) 0.3 10^3/uL (0.0-0.6); ABSOLUTE LYMPHOCYTES (AUTO) 1.6 10^3/uL (0.5-4.7); ABSOLUTE MONOCYTES (AUTO) 0.7 10^3/uL (0.1-1.4); ABSOLUTE NEUT (AUTO) 7.1 10^3/uL (1.7-8.2); EOSINOPHILS % (AUTO) 3.4 % (0-6); HEMATOCRIT 34.7 % (37.9-51.0); HEMOGLOBIN 11.6 g/dL (13.5-17.0); LYMPHOCYTES % (AUTO) 15.8 % (13-45); MEAN CORPUSCULAR HEMOGLOBIN 31.1 pg (27.0-33.4); MEAN CORPUSCULAR HGB CONC 33.5 g/dL (32.0-36.0); MEAN CORPUSCULAR VOLUME 93 fl (80-97); MONOCYTES % (AUTO) 7.2 % (3-13); PLATELET COUNT 409 10^3/uL (150-450); RED BLOOD COUNT 3.73 10^6/uL (4.35-5.55); RED CELL DISTRIBUTION WIDTH 13.1 % (11.5-14.0); SEGMENTED NEUTROPHILS % (AUTO) 72.6 % (42-78); TOTAL CELLS COUNTED % (AUTO) 100 %; WHITE BLOOD COUNT 9.9 10^3/uL (4.0-10.5)
[2020-06-09] MEDS: NICOTINE 14 MG/24 HR PATCH.TD24 TD SCH (10:32)
[2020-06-09] MEDS: ENOXAPARIN SODIUM INJ 40 MG/0.4 ML DISP.SYRIN SUBCUT SCH (10:32)
[2020-06-09] MEDS: FAMOTIDINE 20 MG TABLET PO SCH ×2 (10:33→21:16)
[2020-06-09 10:49] LABS: ANION GAP 11 (5-19); BLOOD UREA NITROGEN 13 mg/dL (7-20); CALCIUM 9.3 mg/dL (8.4-10.2); CARBON DIOXIDE 25 mmol/L (22-30); CHLORIDE 105 mmol/L (98-107); GLUCOSE 99 mg/dL (75-110); POTASSIUM 4.3 mmol/L (3.6-5.0)
--- NOTE | 2020-06-09 11:39 | PDOC PROGRESS REPORT ---
Subjective Date:: 06/09/20 Subjective:: As per admitting physician's note TREVIN MENDOZA III is a 49 year old male with no significant past medical history who presents with 3-day duration of left hand pain, swelling and redness. The pain is dull aching, 8-9/10 in intensity. He states that it started as a small scratch after he was clamped by a chicken fence wire and then it progressively got worse. He was evaluated at the ER 1 day back and he was discharged with oral antibiotic but the swelling and area of redness markedly worsened and he presented back this evening. He has not noticed any discharge from the swelling area. He denies any fever, chills, nausea, vomiting, cough, shortness of breath or any change in his bowel or urinary habits. 06/06/2020. Patient still complaining of left lower extremity swelling and pain, denies any fever or chills, he is status post bedside I&D by orthopedic surgery, plan is if no improvement by tomorrow we will obtain MRI of left upper extremity throughout possible CP septic arthritis or associated osteomyelitis or myositis. 06/07/2020. No acute events overnight. Patient reporting significant improvement of his left hand swelling and tenderness, patient had an I&D at bedside in the morning by orthopedic surgeon, patient denies any fever, chills, nausea, vomiting, diarrhea, constipation or any urinary symptoms. 06/08/2020. No acute events overnight. Patient is reporting improvement of his left hand swelling and pain, given continuous purulent discharge patient was taken to the OR today by orthopedic surgery please refer to operative note. Denies any fever, chills, nausea, vomiting, diarrhea, constipation or any urinary symptoms. P.o. tolerant, ambulatory, having normal bladder bowel movement. 06/09/2020. No acute events overnight. Patient reporting significant improvement of left hand pain, denies any fever, chills, nausea, vomiting. Ini tial culture is growing MRSA. Reason For Visit: LEFT HAND AND ARM CELLULITIS Physical Exam Vital Signs: Temp Pulse Resp BP Pulse Ox 97.6 F 51 L 16 149/69 H 99 06/09/20 08:38 06/09/20 07:51 06/09/20 07:51 06/09/20 07:51 06/09/20 07:51 Intake & Output 11/07/1606/09/20 06/10/20 06:59 06:59 06:59 Intake Total 2733 3452 Output Total 5 Balance 2733 3447 Weight 79.5 kg 78.3 kg General appearance: PRESENT: no acute distress, well-developed, well-nourished Head exam: PRESENT: atraumatic, normocephalic Respiratory exam: PRESENT: clear to auscultation gloria. ABSENT: rales, rhonchi, wheezes Cardiovascular exam: PRESENT: RRR. ABSENT: diastolic murmur, rubs, systolic murmur GI/Abdominal exam: PRESENT: normal bowel sounds, soft. ABSENT: distended, guarding, mass, organolmegaly, rebound, tenderness Extremities exam: PRESENT: full ROM, other - Wound looks clean. No sign of discharge.. ABSENT: calf tenderness, clubbing, pedal edema Neurological exam: PRESENT: alert, awake, oriented to person, oriented to place, oriented to time, oriented to situation, CN II-XII grossly intact. ABSENT: motor sensory deficit Results Laboratory Results: 06/09/20 09:59 06/09/20 09:59 06/09/20 06/09/20 09:59 09:59 WBC 9.9 RBC 3.73 L Hgb 11.6 L Hct 34.7 L MCV 93 MCH 31.1 MCHC 33.5 RDW 13.1 Plt Count 409 Seg Neutrophils % 72.6 Sodium 141.1 Potassium 4.3 Chloride 105 Carbon Dioxide 25 Anion Gap 11 BUN 13 Creatinine 0.79 Est GFR ( Amer) > 60 Glucose 99 Calcium 9.3 06/08/20 08:22 Hand - Left Gram Stain - Final 06/08/20 08:22 Hand - Abscess Gram Stain - Final 06/06/20 08:40 Hand - Left Cellulitis Gram Stain - Final 06/06/20 08:40 Hand - Left Cellulitis Wound Culture - Final Mrsa (Meth Resis Staph Aureus) No Anaerobic Organisms 06/07/20 13:00 Hand - Left Cellulitis Gram Stain - Final 06/07/20 13:00 Hand - Left Cellulitis Wound Culture - Final Mrsa (Meth Resis Staph Aureus) No Anaerobic Organisms Impressions: Upper Extremity CT 06/04/20 22:37 IMPRESSION: 1. Prominent subcutaneous edema about the dorsal aspect of the wrist and hand, suggesting cellulitis. No discrete abscess visualized. 2. Tiny metallic appearing foreign body in the subcutaneous tissues about the dorsal aspect of the hand. Additional punctate foreign body within the soft tissues at the distal thumb. Extremity Ultrasound 06/05/20 00:00 IMPRESSION: 1. No abscess identified sonographically. See above findings. Assessment and Plan - Diagnosis (1) Cellulitis of left hand Is this a current diagnosis for this admission?: Yes Plan: Significant improvement. Leukocytosis improving. Status post I&D orthopedic surgery. Patient presented with with 3 days duration of left arm swelling, pain and erythema Had leukocytosis of 15k with left shift on admission. Failed outpatient treatment No sign of neurovascular compromise at this point X-ray showed no gas in subcutaneous tissue CT left hand prominent subcutaneous edema about the dorsal aspect of the wrist and hand, suggestive cellulitis. No discrete abscess visualized. Wound culture positive for MRSA. Day 5 IV antibiotics. Day 5 IV vancomycin. Day 5 IV ceftriaxone. Received 1 day of IV cefazolin. Continue empiric IV antibiotics. Continue opioid and nonopioid analgesics. Continue wound care. Follow-up Ortho recommendation. Follow-up wound culture. Patient may need prolonged IV antibiotics for the patient has a history of cocaine and heroin abuse. Patient is stating that he only snorts cocaine and heroin very rarely but he has never tried IV drug abuse as he is very scared of needles. We will consult ID for further recommendation on antibiotic choice and duration. (2) Heroin abuse Is this a current diagnosis for this admission?: Yes Plan: As per admitting physician patient reports that occasional heroin use States that he does not use IV injection but rather he snorts Encouraged him to quit illicit drug use (3) Tobacco dependence Is this a current diagnosis for this admission?: Yes Plan: Encouraged tobacco cessation Nicotine patch while inpatient - Time Time Spent with patient: 25-34 minutes Anticipated Discharge Disposition: Home, Self Care Anticipated Discharge Timeframe: within 48 hours
--- NOTE | 2020-06-09 15:38 | PDOC PROGRESS REPORT ---
Subjective Date:: 06/09/20 Subjective:: Patient seen and examined, wound appears to be improving, the proximal swelling also appears to improved. The patient reports feeling better today. Reason For Visit: LEFT HAND AND ARM CELLULITIS Physical Exam Vital Signs: Temp Pulse Resp BP Pulse Ox 97.5 F 59 L 16 131/79 H 100 06/09/20 11:32 06/09/20 11:32 06/09/20 11:32 06/09/20 11:32 06/09/20 11:32 Intake & Output 06/08/20 06/09/20 06/10/20 06:59 06:59 06:59 Intake Total 2733 3452 952 Output Total 5 Balance 2733 3447 952 Weight 79.5 kg 78.3 kg Physical Exam: Left upper extremity Wound has moderate drainage, otherwise dressing is intact Swelling and erythema has resolved in the forearm and is now localized about the second MCP joint. The tissue about the wound appears healthy and improving given the history. There is no gross purulence encountered today. Left upper extremity is neurovascular intact. Results Laboratory Results: 06/09/20 09:59 06/09/20 09:59 06/09/20 06/09/20 09:59 09:59 WBC 9.9 RBC 3.73 L Hgb 11.6 L Hct 34.7 L MCV 93 MCH 31.1 MCHC 33.5 RDW 13.1 Plt Count 409 Seg Neutrophils % 72.6 Sodium 141.1 Potassium 4.3 Chloride 105 Carbon Dioxide 25 Anion Gap 11 BUN 13 Creatinine 0.79 Est GFR ( Amer) > 60 Glucose 99 Calcium 9.3 06/08/20 08:22 Hand - Left Gram Stain - Final 06/08/20 08:22 Hand - Abscess Gram Stain - Final 06/06/20 08:40 Hand - Left Cellulitis Gram Stain - Final 06/06/20 08:40 Hand - Left Cellulitis Wound Culture - Final Mrsa (Meth Resis Staph Aureus) No Anaerobic Organisms 06/07/20 13:00 Hand - Left Cellulitis Gram Stain - Final 06/07/20 13:00 Hand - Left Cellulitis Wound Culture - Final Mrsa (Meth Resis Staph Aureus) No Anaerobic Organisms Impressions: Upper Extremity CT 06/04/20 22:37 IMPRESSION: 1. Prominent subcutaneous edema about the dorsal aspect of the wrist and hand, suggesting cellulitis. No discrete abscess visualized. 2. Tiny metallic appearing foreign body in the subcutaneous tissues about the dorsal aspect of the hand. Additional punctate foreign body within the soft tissues at the distal thumb. Extremity Ultrasound 06/05/20 00:00 IMPRESSION: 1. No abscess identified sonographically. See above findings. Assessment & Plan - Diagnosis (1) Cellulitis of left hand Is this a current diagnosis for this admission?: Yes (2) Abscess of left hand Is this a current diagnosis for this admission?: Yes Plan: Twice daily Dakin's soaks, 20 minutes at a time, dressing change in between Cultures are growing MRSA, defer to infectious disease or hospitalist for postoperative antibiotic care Encourage range of motion of the hand, consider occupational therapy consult Patient should follow-up in my office in approximately 10 days May be able to be discharged tomorrow pending appearance of wound, as well as final antibiotic recommendation. - Time Time Spent with patient: Less than 15 minutes
[2020-06-09] MEDS: SODIUM HYPOCHLORITE 0.25% SOLN 473 ML BOTTLE TP SCH (18:17)
--- NOTE | 2020-06-09 21:45 | Progress Note ---
Provider Note Provider Note: [facility] ID teleconsultation. Patient not examined. Chart reviewed. Patient is a 49-year-old male with heroin and cocaine abuse who was admitted with swelling redness and pain of his left hand. CT scan with findings consistent with cellulitis and 2 retained foreign bodies. He had purulence expressed at the bedside and was taken to the OR for operative I&D where it was noted that he had an abscess tracking up to the PIP joint of the second digit the MCP joint was apparently not involved. All purulence and nonviable tissue was removed. CT scan did not demonstrate any osteomyelitis or abscess. All cultures with MRSA. He has been afebrile but had an initial leukocytosis to 15,000 which is now down trended to normal. Blood cultures are negative. Assessment/Recommendations: Left hand purulent cellulitis with what appears to be a septic second PIP joint. Status post I&D with all cultures with MRSA. Likely IVDU related. No bacteremia. Recommend: -bactrim 2 DS PO BID x 4 weeks given presumed PIP septic joint - if surgeon feels joint capsule was intact, a soft tissue course of 10 days should suffice. Ultimately, patient should be seen prior to end date of antibiotic therapy as it is very difficult to provide a duration without seeing the patient. -Check hepatitis C antibody and HIV
[2020-06-10] MEDS: VANCOMYCIN HCL 1,500 MG in DEXTROSE 5%-WATER 250 ML IV SCH (01:46)
[2020-06-10] MEDS: OXYCODONE-ACETAMINOPHEN 5-325 MG TABLET PO PRN (08:31)
--- NOTE | 2020-06-10 08:49 | PDOC PROGRESS REPORT ---
Subjective Date:: 06/10/20 Subjective:: Patient reports improvement this time. No acute events overnight, no overnight fevers. Reason For Visit: LEFT HAND AND ARM CELLULITIS Physical Exam Vital Signs: Temp Pulse Resp BP Pulse Ox 97.5 F 56 L 16 170/84 H 99 06/10/20 07:34 06/10/20 07:34 06/10/20 07:34 06/10/20 07:34 06/10/20 07:34 Intake & Output 06/09/20 06/10/20 06/11/20 06:59 06:59 06:59 Intake Total 3452 2506 Output Total 5 Balance 3447 2506 Weight 78.3 kg 78.5 kg Physical Exam: No acute distress, alert and x3 Left upper extremity sensation grossly intact to radial median and ulnar nerve. upper extremity motor function grossly intact to radian median ulnar nerve AIN and PIN Pulses 2+, capillary refill less than 2 seconds Compartments soft, no tenderness to palpation Dressing was removed, no continued purulent drainage, mild to moderate serous drainage in the dressing, improvement in swelling and surrounding erythema. Results Laboratory Results: 06/09/20 09:59 06/09/20 09:59 06/09/20 06/09/20 09:59 09:59 WBC 9.9 RBC 3.73 L Hgb 11.6 L Hct 34.7 L MCV 93 MCH 31.1 MCHC 33.5 RDW 13.1 Plt Count 409 Seg Neutrophils % 72.6 Sodium 141.1 Potassium 4.3 Chloride 105 Carbon Dioxide 25 Anion Gap 11 BUN 13 Creatinine 0.79 Est GFR ( Amer) > 60 Glucose 99 Calcium 9.3 06/08/20 08:22 Hand - Left Gram Stain - Final 06/08/20 08:22 Hand - Left Wound Culture - Final Mrsa (Meth Resis Staph Aureus) No Anaerobic Organisms 06/08/20 08:22 Hand - Abscess Gram Stain - Final 06/08/20 08:22 Hand - Abscess Wound Culture - Final Mrsa (Meth Resis Staph Aureus) No Anaerobic Organisms 06/06/20 08:40 Hand - Left Cellulitis Gram Stain - Final 06/06/20 08:40 Hand - Left Cellulitis Wound Culture - Final Mrsa (Meth Resis Staph Aureus) No Anaerobic Organisms 06/07/20 13:00 Hand - Left Cellulitis Gram Stain - Final 06/07/20 13:00 Hand - Left Cellulitis Wound Culture - Final Mrsa (Meth Resis Staph Aureus) No Anaerobic Organisms Impressions: Upper Extremity CT 06/04/20 22:37 IMPRESSION: 1. Prominent subcutaneous edema about the dorsal aspect of the wrist and hand, suggesting cellulitis. No discrete abscess visualized. 2. Tiny metallic appearing foreign body in the subcutaneous tissues about the dorsal aspect of the hand. Additional punctate foreign body within the soft tissues at the distal thumb. Extremity Ultrasound 06/05/20 00:00 IMPRESSION: 1. No abscess identified sonographically. See above findings. Assessment & Plan - Diagnosis (1) Cellulitis of left hand Is this a current diagnosis for this admission?: Yes (2) Abscess of left hand Is this a current diagnosis for this admission?: Yes Plan: Encourage Dakin soaks twice daily Patient may potentially be discharged home today given the infectious disease recommendation We will follow up with the patient prior to antibiotic course completion Encourage following infectious diseases recommendations for HIV and hepatitis C work-up Patient is to be encouraged to perform range of motion activities of the right hand over the interval Daily dressing changes as needed. - Time Time Spent with patient: Less than 15 minutes
[2020-06-10] MEDS ORDERED: SULFAMETHOXAZOLE/TRIMETHOPRIM 800-160 MG TABLET PO SCH (10:00)
[2020-06-10] MEDS: SODIUM HYPOCHLORITE 0.25% SOLN 473 ML BOTTLE TP SCH (10:20)
[2020-06-10] MEDS: ENOXAPARIN SODIUM INJ 40 MG/0.4 ML DISP.SYRIN SUBCUT SCH (10:23)
[2020-06-10] MEDS: FAMOTIDINE 20 MG TABLET PO SCH (10:23)
[2020-06-10] MEDS: NICOTINE 14 MG/24 HR PATCH.TD24 TD SCH (11:15)
[2020-06-10 12:53] VITALS: BP 129/97
--- NOTE | 2020-06-11 07:57 | PDOC DISCHARGE SUMMARY ---
Impression - Admit/DC Date/PCP Admission Date/Primary Care Provider: 06/05/20 02:06 Discharge Date: 06/10/20 - Discharge Diagnosis (1) Cellulitis of left hand Is this a current diagnosis for this admission?: Yes (2) Heroin abuse Is this a current diagnosis for this admission?: Yes (3) Tobacco dependence Is this a current diagnosis for this admission?: Yes - Additional Information Resuscitation Status: Full Code Discharge Activity: Activity As Tolerated Referrals: JAM SANTORO JR, [ACTIVE PROVISIONAL STAFF] - (I have talked to Dr. Armani Santoro who is expecting to see you on 06/19/2020 at his office to evaluate your hand. Please call his office to make an appointment. ) Prescriptions: Sulfamethoxazole/Trimethoprim [Septra-Ds 800-160 mg Tablet] 1 tab PO Q12 14 Days #28 tablet Home Medications: Sulfamethoxazole/Trimethoprim [Septra-Ds 800-160 mg Tablet] 1 tab PO Q12 14 Days #28 tablet 06/10/20 History of Present Illiness History of Present Illness: As per admitting physician's note TREVIN MENDOZA III is a 49 year old male with no significant past medical history who presents with 3-day duration of left hand pain, swelling and redness. The pain is dull aching, 8-9/10 in intensity. He states that it started as a small scratch after he was clamped by a chicken fence wire and then it progressively got worse. He was evaluated at the ER 1 day back and he was discharged with oral antibiotic but the swelling and area of redness markedly worsened and he presented back this evening. He has not noticed any discharge from the swelling area. He denies any fever, chills, nausea, vomiting, cough, shortness of breath or any change in his bowel or urinary habits. Hospital Course Hospital Course: (1) Cellulitis of left hand Significant improvement. Leukocytosis resolved. Patient received I&D orthopedic surgery. Patient presented with with 3 days duration of left arm swelling, pain and erythema Had leukocytosis of 15k with left shift on admission. Failed outpatient treatment No sign of neurovascular compromise. X-ray showed no gas in subcutaneous tissue CT left hand prominent subcutaneous edema about the dorsal aspect of the wrist and hand, suggestive cellulitis. No discrete abscess visualized. Wound culture positive for MRSA. Received 6 days of IV antibiotics. Received 6 days of IV ceftriaxone. Received 6 days of IV vancomycin. Received 1 day of IV cefazolin. ID was consulted and commendation was to switch patient to Bactrim p.o. twice. As per ID recommendation if the joint capsule was not involved he could be sent on p.o. Bactrim for 10 days. Based on operative report and my conversation with Dr. Santoro joint capsule was not involved and patient could be sent on Bactrim for 10 to 14 days. Patient was sent home on Bactrim DS twice a day for 14 days. I personally talked to Dr. Santoro who recommended for patient to follow-up with him on 06/19/2020. I extensively counseled patient on importance of medication adherence and the importance of following up with Dr. Santoro on 06/19/2020 before he is done with his antibiotics. (2) Heroin abuse As per admitting physician patient reports that occasional heroin use States that he does not use IV injection but rather he snorts Encouraged him to quit illicit drug use HIV antibody negative. Hepatitis panel pending at the time of discharge. (3) Tobacco dependence Encouraged tobacco cessation Nicotine patch while inpatient Physical Exam Vital Signs: Temp Pulse Resp BP Pulse Ox 97.4 F 60 16 129/97 H 100 06/10/20 12:49 06/10/20 12:49 06/10/20 12:49 06/10/20 12:49 06/10/20 12:49 Intake & Output 06/10/20 06/11/20 06/12/20 06:59 06:59 06:59 Intake Total 2506 600 Balance 2506 600 Weight 78.5 kg General appearance: PRESENT: no acute distress, well-developed, well-nourished Head exam: PRESENT: atraumatic, normocephalic Respiratory exam: PRESENT: clear to auscultation gloria. ABSENT: rales, rhonchi, wheezes Cardiovascular exam: PRESENT: RRR. ABSENT: diastolic murmur, rubs, systolic murmur GI/Abdominal exam: PRESENT: normal bowel sounds, soft. ABSENT: distended, guarding, mass, organolmegaly, rebound, tenderness Extremities exam: PRESENT: full ROM. ABSENT: calf tenderness, clubbing, pedal edema Musculoskeletal exam: PRESENT: other - Wound looks clean, no sign of discharge or active infection. Neurological exam: PRESENT: alert, awake, oriented to person, oriented to place, oriented to time, oriented to situation, CN II-XII grossly intact. ABSENT: motor sensory deficit Results Laboratory Results: WBC 9.9 10^3/uL (4.0-10.5) 06/09/20 09:59 RBC 3.73 10^6/uL (4.35-5.55) L 06/09/20 09:59 Hgb 11.6 g/dL (13.5-17.0) L 06/09/20 09:59 Hct 34.7 % (37.9-51.0) L 06/09/20 09:59 MCV 93 fl (80-97) 06/09/20 09:59 MCH 31.1 pg (27.0-33.4) 06/09/20 09:59 MCHC 33.5 g/dL (32.0-36.0) 06/09/20 09:59 RDW 13.1 % (11.5-14.0) 06/09/20 09:59 Plt Count 409 10^3/uL (150-450) 06/09/20 09:59 Lymph % (Auto) 15.8 % (13-45) 06/09/20 09:59 Stephenson % (Auto) 7.2 % (3-13) 06/09/20 09:59 Eos % (Auto) 3.4 % (0-6) 06/09/20 09:59 Baso % (Auto) 1.0 % (0-2) 06/09/20 09:59 Absolute Neuts (auto) 7.1 10^3/uL (1.7-8.2) 06/09/20 09:59 Absolute Lymphs (auto) 1.6 10^3/uL (0.5-4.7) 06/09/20 09:59 Absolute Monos (auto) 0.7 10^3/uL (0.1-1.4) 06/09/20 09:59 Absolute Eos (auto) 0.3 10^3/uL (0.0-0.6) 06/09/20 09:59 Absolute Basos (auto) 0.1 10^3/uL (0.0-0.2) 06/09/20 09:59 Total Counted 100 06/05/20 04:46 Seg Neutrophils % 72.6 % (42-78) 06/09/20 09:59 Seg Neuts % (Manual) 85 % (42-78) H 06/05/20 04:46 Lymphocytes % (Manual) 6 % (13-45) L 06/05/20 04:46 Monocytes % (Manual) 7 % (3-13) 06/05/20 04:46 Eosinophils % (Manual) 1 % (0-6) 06/05/20 04:46 Basophils % (Manual) 1 % (0-2) 06/05/20 04:46 Abs Neuts (Manual) 13.3 10^3/uL (1.7-8.2) H 06/05/20 04:46 Abs Lymphs (Manual) 0.9 10^3/uL (0.5-4.7) 06/05/20 04:46 Abs Monocytes (Manual) 1.1 10^3/uL (0.1-1.4) 06/05/20 04:46 Absolute Eos (Manual) 0.2 10^3/uL (0.0-0.6) 06/05/20 04:46 Abs Basophils (Manual) 0.2 10^3/uL (0.0-0.2) 06/05/20 04:46 Toxic Granulation 1+ 06/05/20 04:46 Toxic Vacuolation PRESENT 06/05/20 04:46 Platelet Comment ADEQUATE 06/05/20 04:46 Poikilocytosis SLIGHT 06/05/20 04:46 Tear Drop Cells SLIGHT 06/05/20 04:46 ESR 81 mm/hr (0-15) H 06/07/20 06:22 Sodium 141.1 mmol/L (137-145) 06/09/20 09:59 Potassium 4.3 mmol/L (3.6-5.0) 06/09/20 09:59 Chloride 105 mmol/L (98-107) 06/09/20 09:59 Carbon Dioxide 25 mmol/L (22-30) 06/09/20 09:59 Anion Gap 11 (5-19) 06/09/20 09:59 BUN 13 mg/dL (7-20) 06/09/20 09:59 Creatinine 0.79 mg/dL (0.52-1.25) 06/09/20 09:59 Est GFR ( Amer) > 60 (>60) 06/09/20 09:59 Est GFR (MDRD) Non-Af > 60 (>60) 06/09/20 09:59 Glucose 99 mg/dL (75-110) 06/09/20 09:59 Calcium 9.3 mg/dL (8.4-10.2) 06/09/20 09:59 Total Bilirubin 0.5 mg/dL (0.2-1.3) 06/07/20 06:22 Direct Bilirubin 0.2 mg/dL (0.0-0.4) 06/07/20 06:22 Neonat Total Bilirubin Not Reportable 06/07/20 06:22 Neonat Direct Bilirubin Not Reportable 06/07/20 06:22 Neonat Indirect Bili Not Reportable 06/07/20 06:22 AST 21 U/L (17-59) 06/07/20 06:22 ALT 15 U/L (<50) 06/07/20 06:22 Alkaline Phosphatase 113 U/L (38-126) 06/07/20 06:22 C-Reactive Protein 156.5 mg/L (<10.0) H 06/07/20 06:22 Total Protein 7.0 g/dL (6.3-8.2) 06/07/20 06:22 Albumin 4.0 g/dL (3.5-5.0) 06/07/20 06:22 Time Trough Drawn 0945 06/08/20 09:45 Vancomycin Trough 15.6 ug/mL (5.0-20.0) 06/08/20 09:45 Urine Opiates Screen UNCONFIRMED POSITIVE 06/05/20 16:03 Urine Methadone Screen NEGATIVE 06/05/20 16:03 Ur Barbiturates Screen NEGATIVE 06/05/20 16:03 Ur Phencyclidine Scrn NEGATIVE 06/05/20 16:03 Ur Amphetamines Screen NEGATIVE 06/05/20 16:03 U Benzodiazepines Scrn NEGATIVE 06/05/20 16:03 Urine Cocaine Screen NEGATIVE 06/05/20 16:03 U Marijuana (THC) Screen NEGATIVE 06/05/20 16:03 HIV 1&2 Antibody NEGATIVE (NEGATIVE) 06/10/20 08:55 SARS-CoV-2 (PCR) NEGATIVE (NEGATIVE) 06/05/20 12:09 Impressions: Upper Extremity CT 06/04/20 22:37 IMPRESSION: 1. Prominent subcutaneous edema about the dorsal aspect of the wrist and hand, suggesting cellulitis. No discrete abscess visualized. 2. Tiny metallic appearing foreign body in the subcutaneous tissues about the dorsal aspect of the hand. Additional punctate foreign body within the soft tissues at the distal thumb. Extremity Ultrasound 06/05/20 00:00 IMPRESSION: 1. No abscess identified sonographically. See above findings. Stroke Is this a Stroke Patient?: No Acute Heart Failure Is this a Heart Failure Patient?: No
[2020-06-12 15:36] LABS: HEPATITS B SURFACE ANTIGEN Negative (Negative)
[2020-06-13 07:01] LABS: HEPATITIS C VIRUS ANTIBODY <0.1 s/co ratio (0.0-0.9)
== END 2020-06-10 14:35 | disposition home or self-care (01) | DRG 580 ==
LOC: ER 21:13 → EH 06-05 02:06 → 3W 06-05 07:58 → 4S 06-06 06:19
PROVIDERS: ADMIT Student in an Organized Health Care Education/Training Program; ATTEND Internal Medicine
PROC: 0H9GXZZ Drainage of Left Hand Skin, External Approach (ICD-10-PCS; 2020-06-06)
PROC: 0JBK0ZZ Excision of Left Hand Subcutaneous Tissue and Fascia, Open Approach (ICD-10-PCS; principal; 2020-06-08 10:00)
DX: L02.512 Cutaneous abscess of left hand (principal); L03.114 Cellulitis of left upper limb; B95.62 Methicillin resistant Staphylococcus aureus infection as the cause of diseases classified elsewhere; F11.10 Opioid abuse, uncomplicated; F17.200 Nicotine dependence, unspecified, uncomplicated; Z71.51 Drug abuse counseling and surveillance of drug abuser; F14.10 Cocaine abuse, uncomplicated; Z20.828 Contact with and (suspected) exposure to other viral communicable diseases
CPT/HCPCS: 00400; 36415; 76882; 80048; 80053; 80074; 80202; 80307; 85025; 85027; 85652; 86140; 86701; 87070; 87075; 87077; 87186; 87205; 87635; 96365; 96375; 96376; 99285; C9803; G0378; J0690; J0696; J1100; J1170; J1650; J1885; J2250; J2405; J2704; J3010; J3370; J3490; J7060